=== PATIENT | male | born 1955 | race Caucasian/White ===

== ENCOUNTER → 2021-03-27 17:19 | Outpatient (BNVA) | payer MEDICARE, SELFPAY | PROVIDERS: PCP Nurse Practitioner Family; Visit Provider Nurse Practitioner Family | DX: E11.9 Type 2 diabetes mellitus without complications (principal); Z12.5 Encounter for screening for malignant neoplasm of prostate; R53.83 Other fatigue; S81.851A Open bite, right lower leg, initial encounter; W54.0XXA Bitten by dog, initial encounter; Z68.27 Body mass index [BMI] 27.0-27.9, adult; F17.210 Nicotine dependence, cigarettes, uncomplicated; Z71.89 Other specified counseling | CPT/HCPCS: 80053; 80061; 82306; 82607; 83036; 84443; 85025; 87070; 87075; 87205; G0103 ==

== ENCOUNTER 2021-04-10 13:18 | Outpatient (CLI) | payer MEDICARE, SELFPAY | END 2021-04-10 13:19 | disposition home or self-care (01) | LOC: WOUND 13:22 | PROVIDERS: PCP Nurse Practitioner Family; Visit Provider Nurse Practitioner Family | DX: E11.622 Type 2 diabetes mellitus with other skin ulcer (principal); L97.812 Non-pressure chronic ulcer of other part of right lower leg with fat layer exposed; F17.210 Nicotine dependence, cigarettes, uncomplicated | CPT/HCPCS: 11042; G0463 ==

== ENCOUNTER 2021-04-17 14:19 | Outpatient (CLI) | payer MEDICARE, SELFPAY | END 2021-04-17 14:20 | disposition home or self-care (01) | LOC: WOUND 14:20 | PROVIDERS: PCP Nurse Practitioner Family; Visit Provider Thoracic Surgery (Cardiothoracic Vascular Surgery) | DX: E11.622 Type 2 diabetes mellitus with other skin ulcer (principal); L97.822 Non-pressure chronic ulcer of other part of left lower leg with fat layer exposed; F17.210 Nicotine dependence, cigarettes, uncomplicated | CPT/HCPCS: 11042 ==

== ENCOUNTER 2021-04-24 14:41 | Outpatient (CLI) | payer MEDICARE, SELFPAY | END 2021-04-24 14:42 | disposition home or self-care (01) | LOC: WOUND 14:43 | PROVIDERS: PCP Nurse Practitioner Family; Visit Provider Thoracic Surgery (Cardiothoracic Vascular Surgery) | DX: Z09 Encounter for follow-up examination after completed treatment for conditions other than malignant neoplasm (principal); F17.210 Nicotine dependence, cigarettes, uncomplicated | CPT/HCPCS: 99212 ==

== ENCOUNTER → 2021-08-01 09:02 | Outpatient (BNVA) | payer MEDICARE, MEDICAID, SELFPAY | PROVIDERS: PCP Nurse Practitioner Family; Visit Provider Specialist | DX: I69.911 Memory deficit following unspecified cerebrovascular disease (principal); F41.8 Other specified anxiety disorders; Z91.19 Patient's noncompliance with other medical treatment and regimen; F17.210 Nicotine dependence, cigarettes, uncomplicated | CPT/HCPCS: 96116; 99204 ==

== ENCOUNTER → 2022-12-13 15:54 | Outpatient (BNVA) | payer MEDICARE, MEDICAID, SELFPAY | PROVIDERS: PCP Nurse Practitioner Family; Visit Provider Nurse Practitioner Family | DX: E11.65 Type 2 diabetes mellitus with hyperglycemia (principal); Z12.5 Encounter for screening for malignant neoplasm of prostate | CPT/HCPCS: 80053; 80061; 83036; 84443; 85025; G0103 ==

== ENCOUNTER → 2022-12-17 09:22 | Outpatient (BNVA) | payer MEDICARE, MEDICAID, SELFPAY | PROVIDERS: PCP Nurse Practitioner Family; Visit Provider Podiatrist Foot & Ankle Surgery | DX: I73.9 Peripheral vascular disease, unspecified (principal); B35.1 Tinea unguium; E11.65 Type 2 diabetes mellitus with hyperglycemia; G62.9 Polyneuropathy, unspecified; E11.42 Type 2 diabetes mellitus with diabetic polyneuropathy | CPT/HCPCS: 11721; 99203 ==

== ENCOUNTER 2022-12-26 10:17 | Outpatient (CLI) | payer MEDICARE, SELFPAY ==
--- NOTE | 2022-12-26 10:45 | CT_ITS ---
WS: [id number] LDCT LUNG CANCER SCREENING TECHNIQUE: Noncontrast CT of the chest with coronal and sagittal reformatted images. CLINICAL INFORMATION: F17.210 - Nicotine dependence, cigarettes, uncomplicated COMPARISON: None. DLP: 74.39 mGy.cm DIvol: Mean CTDIvol: 1.80 (mGy) All CT scans at [facility] use at least one of these dose optimization techniques: automat ed exposure control; mA and/or kV adjustment per patient size (includes targeted exams where dose is matched to clinical indication); or iterative reconstruction. FINDINGS:Noncalcified ovoid nodule LEFT lower lobe measuring 8.7 mm. Normal endobronchial tree. Nonca lcified nodule RIGHT lower lobe laterally measuring 4 mm. Aortic calcification. Normal caliber thoracic aorta. Coronary calcification. A few prominent paratrac heal lymph nodes nonspecific but likely reactive. Normal caliber descending thoracic aorta. No axilla ry lymphadenopathy. Adrenal glands are normal. Splenic artery calcification. Normal GE junction. CT/CT lung screening [id number] IMPRESSION: 8.7 mm noncalcified nodule LEFT lower lobe. Recommend short interva l follow-up in 3 months versus further evaluation with PET/CT. This is borderli ne in size for PET CT evaluation. LUNG-RADS: 4A-Probably Suspicious FOLLOW UP: 3 Month LDCT
== END 2022-12-26 10:18 | disposition home or self-care (01) ==
LOC: RAD 10:20
PROVIDERS: PCP Nurse Practitioner Family; Visit Provider Nurse Practitioner Family
DX: R91.1 Solitary pulmonary nodule (principal); F17.210 Nicotine dependence, cigarettes, uncomplicated
CPT/HCPCS: 71271

== ENCOUNTER 2023-08-04 16:54 | Inpatient (IN) | payer MEDICARE, MEDICAID, SELFPAY ==
[2023-08-04] VITALS (24 sets, daily range): BP systolic 133–176; BP diastolic 49–87; PULSE 86–110; RESP 12–29; TEMP 36.8; O2SAT 85–100; BMI 30.4
--- NOTE | 2023-08-04 17:00 | ECG_ITS ---
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 Measurements Intervals [place] Rate: 101 P: 62 OH: 175 QRS: 20 QRSD: 99 T: 134 QT: 328 QTc: 426 Interpretive Statements SINUS TACHYCARDIA POSSIBLE LEFT ATRIAL ENLARGEMENT [-0.1mV P-WAVE IN V1/V2] LEFT VENTRICULAR HYPERTROPHY AND ST-T CHANGE [VOLTAGE CRITERIA PLUS ST/T ABNORMALITY] POSSIBLE SEPTAL MYOCARDIAL INFARCTION , AGE INDETERMINATE Compared to ECG 08/22/2017 10:19:13 Left ventricular hypertrophy now present ST (T wave) deviation now present Sinus bradycardia no longer present Myocardial infarct finding still present Electronically Signed On 08-05-2023 8:18:22 GUEST LAUNDRY ATTENDANT by Orlin Smith M.D. [id number]
--- NOTE | 2023-08-04 17:10 | XRR_ITS ---
PROCEDURE INFORMATION: Exam: XR Chest Exam date and time: 08/04/2023 5:17 PM Age: 68 years old Clinical indication: Pain; Angina pectoris; Additional info: Cp TECHNIQUE: Imaging protocol: Radiologic exam of the chest. Views: 1 view. COMPARISON: CT lung screening [id number] 12/26/2022 10:42 AM FINDINGS: Lungs: Unremarkable. No consolidation. Pleural spaces: Unremarkable. No pleural effusion. No pneumothorax. Heart/Mediastinum: Unremarkable. No cardiomegaly. Bones/joints: Unremarkable. XR/XR chest 1V portable [id number] IMPRESSION: No acute findings.
--- NOTE | 2023-08-04 17:11 | ED_ITS ---
HPI - Chest Pain 2 General: Chief Complaint: Headache Stated Complaint: AMS; HYPERGLYCEMIA Source: patient and EMS Mode of arrival: EMS History of Present Illness: Patient was transported the emergency department EMS. He apparently triggered his medical alert bracelet because he did not feel well. He denied any specific chest pain shortness of breath or other constitutional symptoms. His daughter provides additional history and that she states that he had a IN with stent placement in 2018. She states he does no longer take Plavix a couple or other anticoagulants. He does take his statin. He still occasionally smokes cigarettes. She states that he had a rupture of an AVM in 2018 which occurred sometime after he had his STEMI and stent placement. Pertinent past history: coronary artery disease Onset: during rest Pain radiation: none Associated symptoms: Deny dyspnea, fever(s), nausea, palpitations, syncope or vomiting Treatment prior to arrival: aspirin (324 mg) and nitroglycerin Risk Factors: Coronary artery disease risk factors: smoking history and hyperlipidemia Review of Systems 2 Const: Reports: body aches and malaise; Denies: fever(s) or chills Eyes: Denies: change in vision ENMT: Denies: throat pain, odynophagia, nasal discharge or nasal congestion Card: Denies: palpitations, irregular heart rhythm, syncope or pre-syncope Resp: Denies: dyspnea, productive cough or non-productive cough GI: Denies: nausea, vomiting or diarrhea : Denies: flank pain, difficulty urinating or dysuria Musc: Denies: back pain, extremity pain or extremity swelling Skin/Breast: Denies: rash Neuro: Denies: headache(s) Psych: Reports: anxiety PFSH ED 2 PFSH: Medical History COPD (chronic obstructive pulmonary disease) Hypertension Dyslipidemia Memory deficit following unspecified cerebrovascular disease Nicotine dependence, unspecified, uncomplicated Diabetes Surgical History Hx of umbilical hernia repair (~2016) Hx of angioplasty Hx of colonoscopy (~2016) Hx of surgical amputation of finger (R) middle finger approx 35 yrs ago Hx of basal cell carcinoma excision (~2012) nose Family History Sister Diabetes Hypertension Mother Diabetes Father CAD (coronary artery disease) Cancer lung Brother , younger brother; in mid 40's Family history of premature coronary artery disease Social History Smoking and tobacco/nicotine status: current every day tobacco/nicotine user (2 packs a day) cigarettes Packs smoked per day: 2 Years cigarettes smoked: 56 Second hand smoke exposure: Yes Alcohol intake: never Substance/Drug Use: never Adopted: No Caregiver/support person: Yes (family) Lives independently: Yes Household members: none Marital status: service: No Current occupational status: disabled Current gender identity: Male Special lexa needs: No Agree to transfusion: Yes Physical Exam 2 Narrative: EXAM NARRATIVE: The patient's alert and cooperative. Const: COMMON NORMALS: no acute distress, average body habitus and alert N UTRITIONAL APPEARANCE: overweight ORIENTATION/CONSCIOUSNESS: Yes oriented to person and Yes oriented to place HENMT: COMMON NORMALS: normocephalic, Normal nasal mucous membranes and turbinates present and moist oral mucous membranes HEAD & SCALP: n ormocephalic NOSE: Normal nasal mucous membranes and turbinates present Eye: COMMON NORMALS: Equal, round and reactive pupils present and conjunctivae normal CONJUNCTIVA: Yes conjunctivae normal PUPIL: Yes Equal, round and reactive pupils present Neck/C-Spine: COMMON NORMALS: full ROM, no JVD and No carotid bruits Chest: COMMONS NORMALS: normal inspection of the chest Resp: COMMON NORMALS: normal respiratory effort, No use of accessory muscles and clear to auscultation bilaterally AUSCULTATION: clear to auscultation bilaterally Cardio: COMMON NORMALS: no JVD, regular rate, regular rhythm, No murmurs present (Cardio) and Peripheral pulses 2+ throughout RATE: regular rate R HYTHM: regular rhythm PERIPHERAL PULSES: Peripheral pulses 2+ throughout GI: COMMON NORMALS: Normal to inspection, nondistended, normoactive bowel sounds present, Soft to palpation and non-tender PALPATION: Yes Soft to palpation : COMMON NORMALS: Yes no CVA tenderness BLADDER/KIDNEY EXAM: Yes no CVA tenderness PENIS: normal penis Back/Pelvis: COMMON NORMALS: no CVA tenderness, thoracic and lumbar spine normal to inspection, no thoracic nor lumbar tenderness and thoraco-lumbar ROM normal Extremity: COMMON NORMALS: normal to inspection, capillary refill normal, no joint enlargement, no calf tenderness and no pedal edema Neuro: COMMON NORMALS: moves all extremities and no focal motor deficits S ENSORIUM/ORIENTATION: Yes alert, Yes oriented to person and Yes oriented to place Psych: COMMON NORMALS: mental status grossly normal Skin: COMMON NORMALS: turgor normal and no petechiae GENERAL SKIN EXAM: t urgor normal Course 2 Reevaluation(s): Reevaluation #1: Oil [place] Technician was activated at 1724 as well as cardiology was consulted. Time: 17:24 Reevaluation #2: Patient and family informed of our suspicion of acute IN and plan for intervention. They voiced understanding. Time: 17:42 Consultations: Consultation #1: Cardiology was consulted and EKG transmitted. Time: 17:24 Vital Signs: Vital signs: Vital Signs Pulse Rate 93 08/04/23 17:33 Respiratory Rate 25 H 08/04/23 17:33 Blood Pressure 133/72 08/04/23 17:33 Pulse Oximetry 93 08/04/23 17:33 Oxygen Delivery Me thod Room Air 08/04/23 17:33 MDM - Chest Pain Medical Decision Making Patient with history of coronary disease and having historically had an IN with stent placement in 2018 who presented via EMS after feeling unwell last night which continued throughout the day. No other specific complaints of chest pain fevers chills etc. the patient just felt malaise and unwell. EMS noted EKG changes in the field suggestive of possible ischemic condition and the patient was transported to the emergency department. No records available within the current system notes supported either an old EKG or prior history of angiogram despite the daughters history that he had been cared for at this facility. Initial evaluation of the patient revealed him to be awake and alert not complaining of chest pain. He had received aspirin and nitroglycerin in the field by EMS. Initial electrocardiogram here revealed ST segment elevation in V1 and V2 with some reciprocal changes noted in inferior limb leads II, III and aVF. EKG suggestive of an anterior septal occlusive IN. Cardiology and [place] Technician was notified. The patient and family were informed of presumptive diagnosis. Plan will be to have cardiology the patient to the [place] Technician for angiography and further intervention as indicated. Lab Data I reviewed the patient's lab results. 08/04/23 17:21 08/04/23 17:21 Radiology Impressions Chest X-Ray 08/04/23 17:10 IMPRESSION: No acute findings. Laboratory Results WBC 11.73 10^3/uL (3.29-11.43) H 08/04/23 17:21 RBC 5.78 10^6/uL (3.85-5.65) H 08/04/23 17:21 Hgb 17.40 g/dL (11.27-16.99) H 08/04/23 17:21 Hct 52.9 % (37-53) 08/04/23 17:21 MCV 91.5 fl (82-101) 08/04/23 17:21 MCH 30.1 pg (27-33) 08/04/23 17:21 MCHC 32.9 g/dL (30-55) 08/04/23 17:21 RDW 12.6 % (12.1-15.1) 08/04/23 17:21 Plt Count 213 10^3/cmm (157-399) 08/04/23 17:21 MPV 13.3 fL (7.4-10.4) H 08/04/23 17:21 Neut % (Auto) 89.5 % 08/04/23 17:21 Lymph % (Auto) 5.5 % 08/04/23 17:21 [place] % (Auto) 4.1 % 08/04/23 17:21 Eos % (Auto) 0.0 % 08/04/23 17:21 Baso % (Auto) 0.5 % 08/04/23 17:21 Neut # (Auto) 10.50 10^3/uL (1.8-7.7) H 08/04/23 17:21 Lymph # (Auto) 0.6 10^3/uL (0.8-4.8) L 08/04/23 17:21 [place] # (Auto) 0.5 10^3/uL (0.2-0.9) 08/04/23 17:21 Eos # (Auto) 0.0 10^3/uL (0.0-0.8) 08/04/23 17:21 Baso # (Auto) 0.1 10^3/uL (0.0-0.1) 08/04/23 17:21 Nucleated RBC % (auto) 0 % 08/04/23 17:21 Nucleated RBCs # 0.0 /100WBC 08/04/23 17:21 POC Glucose > 600 mg/dL (70-110) H* 08/04/23 17:06 XR interpretation done by ED provider, pending radiology final review ED provider radiology interpretation(s): Chest x-ray reveals borderline cardiomegaly but no essentially clear lung leos EKG Data EKG 1: I personally reviewed and interpreted this EKG as follows: Interpretation: Contemporaneous review of acute EKG reveals a ventricular rate of 101 bpm. He has normal DC interval, QRS duration, corrected QT interval. Normal axis. Borderline sinus tachycardia at [address] elevations in V1 and V2 well as some ST depressions noted in 2 3 and aVF. Suspicious for anterior septal myocardial infarction. No prior tracings available for comparison. Discharge Plan Discharge Patient Disposition: Admitted As Inpatient Clinical Impression: ST elevation (STEMI) myocardial infarction Condition: Stable Coding Level of Care Code ED Labor Relations Director for Irina Chan
[2023-08-04 17:22] LABS: Glucose Point of Care > 600 mg/dL (70-110)
--- NOTE | 2023-08-04 17:27 | XACV_ITS ---
Exam Room: 2 Ht: 175 cm Wt: 100 kg BSA: 2.24 m2 Gender: Male : 1955 Any Known Allergies: No known allergies Exam Priority: Routine Procedure(s): Procedure Description: Diagnostic procedure Procedure Description: PCI procedure Procedure Description: Left Heart Catheterization Procedure Description: Left ventriculography Procedure Description: Drug Eluting Coronary Stent Procedure Description: Coronary Angiography Diagnostic Cath Status: Emergency Diagnostic Findings * Left Main has no disease. * Left Anterior Descending has no disease. * Circumflex has no disease. * Distal Right Coronary Artery: obstructive 70% stenosis, DALILA: 3 flow. * Coronary angiography shows co-dominance. PCI Status: Emergency PCI Indication: STEMI - Stable (<= 12 hrs Sx) Interventional Findings * 90% distal right coronary artery. 80% mid obtuse marginal branch 60 to 70% mid left succumbs artery. LAD showed heavily calcified vessel with moderate 60% disease right after the takeoff of diagonal branch. There is aneurysmal dilatation proximally with mild to moderate disease. * Distal Right Coronary Artery: 70% stenosis treated with a MDT R VINCENZO 3.5X18 TORY. Conclusions 1. There is obstructive coronary artery disease with one vessel disease. 2. Moderate left ventricular systolic dysfunction. Ejection fraction of 35%. 3. Distal Right Coronary Artery was treated with a Drug Eluting Stent. Recommendations * Continue current medical management and risk factor modification. Post Op Diagnosis: Description: After reviewing the angiogram the LAD is patent with moderate diffuse disease right after the takeoff of diagonal branch no high-grade stenosis. Ostial diagonal branch has about 50% disease. Left circumflex artery has mid 60 to 70% disease at the bifurcation of good-sized obtuse marginal branch which has about 75 to 80% mid disease. The right coronary artery was a good-sized vessel and has 90% distal disease decision was made to proceed with a RCA intervention. 6 Kyrgyz JR4 guiding catheter was advanced ascending aorta and left main was engaged. [place] wire was utilized to cross the distal RCA without difficulty. 3.5 x 18 mm drug-eluting [place] stent was advanced to the stenotic lesion was deployed using 14 sal pressure with excellent results. There is distal 40 to 50% in the PDA which taper to be relatively small vessel distally. Patient tolerated procedure well without complications. Recommendation: 1. Continue aspirin and Brilinta for a year. Patient will require intervention to left circumflex artery and obtuse marginal branch at later stage 2. Management for ischemic cardiomyopathy with beta-christine REKHA inhibitor. Aldactone as tolerated at later stage. 3. Risk factor management modifications. Ventriculography Ejection Fraction: 35.0 % Left Ventriculography Findings: * Anterior apical and inferior apical hypokinesis with EF about 35%. Pressures Phase:Rest AO : 174 / 80 ( 110 ) @ 12:49:12 PM 132 / 94 ( 107 ) @ 12:49:12 PM 160 / 68 ( 102 ) @ 12:49:12 PM 129 / 56 ( 79 ) @ 12:49:12 PM LV : 118 / 15 / 11 @ 12:49:12 PM 156 / -7 / 6 @ 12:49:12 PM Valves Phase:DefaultPhase AV : 0.0 @ 6:49:12 PM AV Mean Gradient: 0.0 @ 6:49:12 PM 0.0 @ 6:49:12 PM Clinical Evaluation EBL: 5mL-10mL Procedural Details Pre-Procedure Time Out. Identified patient by full name and date of as verbalized by the patient/guarantor. Does the consent match the physician's order: N/A Emergent; Informed Consent not obtained due to time critical life threat. Accurate & Complete Informed Consent: N/A Emergent; Informed Consent not obtained due to time critical life threat. Inpatient/Outpatient History & Physical on Chart: N/A Emergent; Informed Consent not obtained due to time critical life threat. If H&P is completed, is and addenduem needed: N/A Emergent; Informed Consent not obtained due to time critical life threat; If yes, is the addendum complete: N/A Emergent; Informed Consent not obtained due to time critical life threat. Visualize and Verify Site with Patient/Guarantor: N/A. Relevant Radiology Images available: N/A Emergent. The risks, benefits, and alternatives of sedation and/or procedure were discussed by physician. The patient agrees to continue. Procedure started. [facility] Clinical Fraility Score: 4: Vulnerable. Admit Source: Emergency department. Clinical Manager Indications: ACS <= 24 hours. Chest Pain Symptom Assessment: Atypical Angina. Correct patient, site and procedure confirmed by cath team. Current diagnosis: STEMI. PERRLA. Strong, equal hand fixed route operator bilaterally. Lungs clear x 5 lobes. IV Site on Arrival: 20 gauge in the right hand. IV Site on Arrival: 18 gauge in the right anticubital. IV Site on Arrival: 18 gauge in the left anticubital. IV Fluids: 0.9% NaCl at KVO. 0 mL infused prior to laborer drying department. Oxygen started at 2liters/min via nasal canula. bilateral groins was prepped with chloroprep then draped in the usual sterile fashion. Physician notified. Baseline sample Acquired. HR: 97 BPM. Physician arrived. Physician scrubbed in. Immediate Pre-Procedure Time Out. Correct Patient: Yes; Correct Procedure: Yes; Correct Site: Yes; Correct Patient Position: Yes; Correct Supplies: Yes; Dried Flammable Prep: Yes; Blood Products Available: No;. Lidocaine 1% infiltrated to the right groin. Arterial access obtained with micropuncture set. A 5 luxembourger JR4 catheter in over wire. Multiple views taken of right coronary artery. Catheter removed over the standard wire. 6 luxembourger JL 4 guide catheter was inserted over the wire. Multiple views taken of left coronary artery. Physician review of cine films. Guide catheter out over standard wire. 6 luxembourger JR 4 guide catheter was inserted over the wire. [place] guidewire was advanced through the guide catheter to lesion in the distal RCA. Lab called critical potassium of 6.7 and Glucose of 1092. Guidewire advanced across lesion. Stent inserted to lesion in the distal RCA. Inflation Number : 1 A CRYS Schaeffer VINCENZO 3.5X18 TORY -Lot Number#[id number] EXP 11-18-2025 was prepped and advanced across the Dist RCA. The stent was deployed at 14 SAL for 0:10 seconds. Stent balloon out over wire. Results checked. Wire out. Guide catheter out. A 5 luxembourger Angled Pig catheter in over wire. EDP Sample taken: LV 118/15,11; HR: 101 BPM; SpO2: 96%. LV gram performed in [place] @ 10 mL/second for a total of 20 mL. Pullback taken: LV 156/-8,6; AO 160/68(102); Mean: 0mmHg, Peak to Peak: 0mmHg, SEP: 8sec/min; HR: 101 BPM; SpO2: 96%. ACT drawn. Results 294 seconds. Therapeutic limits - pre-heparin administration 90-150 seconds and monitoring heparin during a vascular procedure >250 seconds. A Right femoral angiogram was performed to determine safe placement of closure device. Physician scrubbed out. A Suture was successful obtaining hemostatsis at the Femoral artery insertion site. Sheath(s) sutured into position with 2-0 silk and sterile 4x4's and Op-site applied over the site. No oozing or signs and symptoms of hematoma noted. Arterial sheath flushed and connected to tranducer and pressure bag with heparinized saline. Post Procedure: Pulses reassessed and unchanged. PERRLA. Strong, equal hand fixed route operator bilaterally. No VTE prophylaxis required. PCI Indication: STEMI - Stable (<= 12 hrs from symptom onset). Medication's Wasted: Nitro = 49.8 mg. Medication's Wasted: Other = Fentanyl 75mcg. Total IV fluids: 50 mL. Post-op diagnosis: 80% Distal RCA stenosis, 80% OM stenosis. Complications: None. Estimated blood loss: 5mL-10mL. Responsiveness - Normal response to verbal stimuli; alert and oriented, PERRLA. Airway - Unaffected, no intervention required; spontaneous ventilation. Circulation: W/N/L, pulses unchanged. Nausea/Vomiting: No. Procedure completed. Patient transferred by bed to ICU. Vital chart was stopped. Brilinta 180mg PO ordered by Dr. Tavarez. Pt having difficulty swallowing water at this time. Medication sent to unit to be administered. Access Site Site: Femoral artery Sheath Size: 6 Fr Hemostasis Method: Suture Hemostasis Success: Successful Complication Findings: No complication. Procedure Medications Start: 6:02 PM Stop: 6:02 PM Medication: Versed Amount: 1 mg Route: I.V. Start: 6:02 PM Stop: 6:02 PM Medication: Fentanyl Amount: 25 mcg Route: I.V. Start: 6:13 PM Stop: 6:13 PM Medication: Versed Amount: 1 mg Route: I.V. Start: 6:17 PM Stop: 6:17 PM Medication: Heparin Amount: 5000 units Route: I.V. Start: 6:20 PM Stop: 6:20 PM Medication: Aggrastat 12.5 mg/250 mL Amount: 50 ml Route: I.V. bolus Start: 6:25 PM Stop: 6:25 PM Medication: Nitrogylcerin Amount: 200 mcg Route: I.C. I, the attending physician, have reviewed and verified all procedure medications. Yes, all medications given per verbal order Report Signatures Finalized by Lokesh Elder MD on 08/04/2023 07:05 PM
[2023-08-04 17:36] LABS: Basophils # 0.1 10^3/uL (0.0-0.1); Basophils % 0.5 %; Hematocrit 52.9 % (37-53); Lymphocytes # 0.6 10^3/uL (0.8-4.8); Lymphocytes % 5.5 %; Mean Corpuscular HGB Conc 32.9 g/dL (30-55); Mean Corpuscular Hemoglobin 30.1 pg (27-33); Mean Corpuscular Volume 91.5 fl (82-101); Mean Platelet Volume 13.3 fL (7.4-10.4); Monocytes # 0.5 10^3/uL (0.2-0.9); Monocytes % 4.1 %; Neutrophils % 89.5 %; Nucleated Red Blood Cells % 0 %; Platelet Count 213 10^3/cmm (157-399); Red Blood Count 5.78 10^6/uL (3.85-5.65); Red Cell Distribution Width 12.6 % (12.1-15.1); White Blood Count 11.73 10^3/uL (3.29-11.43)
--- NOTE | 2023-08-04 17:41 | PC.NURSE ---
placed pt on 2L NC, oxygen sat on room air was 88%, currently 97%
--- NOTE | 2023-08-04 17:52 | PC.NURSE ---
laboratory chemist arrival to ED 1748, report given to Alie. pt left ED at 1750
[2023-08-04 17:54] LABS: Troponin(5th) Baseline 42 ng/L (0-15)
[2023-08-04 18:03] LABS: Alanine Aminotransferase 27 U/L (0-41); Albumin Level 4.3 g/dL (3.5-5.2); Alkaline Phosphatase 247 U/L (40-130); Aspartate Amino Transferase 15 U/L (0-40); Blood Urea Nitrogen 38 mg/dL (8-23); Carbon Dioxide 20 mmol/L (22-29); Chloride 92 mmol/L (98-107); Globulin 4.1 g/dL (1.3-4.6); Glomerular Filtration Rate 50.1 mL/min (90-130); NT Pro B Type Natriuretic Pept 12940 pg/mL (0-125); Sodium 135 mmol/L (136-145); Total Bilirubin 0.4 mg/dL (0.15-1.2); Total Protein 8.4 g/dL (6.6-8.7)
[2023-08-04 18:13] LABS: Osmolality Calculated 344 mOsm/kg (285-295)
[2023-08-04 18:17] LABS: Anion Gap 29.7 (5-19)
[2023-08-04 18:19] LABS: Glucose 1092 mg/dL (65-115); Potassium 6.7 mmol/L (3.5-5.1)
--- NOTE | 2023-08-04 18:35 | P.CONIM_ITS ---
Providers/Reason For Consult 2 Consulting Physician/Specialty*: ER Reason for Consult*: STEMI Attending Physician: Lokesh Tavarez MD Primary Care Provider: MERY Medina History of Present Illness History of Present Illness Xander Chilel is a 68 year old male with no prior history of coronary artery disease. Who presented to the emergency room not feeling well today patient called his neighbor to call the ambulance. Patient was brought to the hospital EKG was performed that revealed possible anterior wall WA ST with ST elevation in V1 V2 V3. Patient had underlying incomplete left bundle branch block. Patient does not have specific complaint of chest pain. Patient had no prior medical care with any primary care physician. Denies any history of hypertension diabetes or hyper lipidemia. He has history of stroke. Review of Systems 2 Const: Reports: body aches and malaise; Denies: fever(s) or chills Eyes: Denies: change in vision ENMT: Denies: throat pain, odynophagia, nasal discharge or nasal congestion Card: Denies: palpitations, irregular heart rhythm, syncope or pre-syncope Resp: Denies: dyspnea, productive cough or non-productive cough GI: Denies: nausea, vomiting or diarrhea : Denies: flank pain, difficulty urinating or dysuria Musc: Denies: back pain, extremity pain or extremity swelling Skin/Breast: Denies: rash Neuro: Denies: headache(s) Psych: Reports: anxiety Medications/Allergies Home Medications Medication Instructions Recorded Confirmed Last Taken Type diabetic shoes with 3 inserts #1 ea 12/17/22 12/17/22 Unknown Rx atorvastatin 10 mg tablet See Rx Instructions .Route 03/28/23 Unknown Rx .COMPLEX #30 tabs dapagliflozin propanediol 10 mg See Rx Instructions .Route 03/28/23 Unknown Rx tablet (Farxiga) .COMPLEX #30 tabs Allergies Allergy/AdvReac Type Severity Reaction Status Date / Time No Known Allergies Allergy Verified 12/17/22 09:33 PFSH Acute 2 PFSH: Medical History COPD (chronic obstructive pulmonary disease) Hypertension Dyslipidemia Memory deficit following unspecified cerebrovascular disease Nicotine dependence, unspecified, uncomplicated Diabetes Surgical History Hx of umbilical hernia repair (~2016) Hx of angioplasty Hx of colonoscopy (~2017) Hx of surgical amputation of finger (R) middle finger approx 35 yrs ago Hx of basal cell carcinoma excision (~2012) nose Family History Sister Diabetes Hypertension Mother Diabetes Father CAD (coronary artery disease) Cancer lung Brother , younger brother; in mid 40's Family history of premature coronary artery disease Social History Smoking and tobacco/nicotine status: current every day tobacco/nicotine user (2 packs a day) cigarettes Packs smoked per day: 2 Years cigarettes smoked: 56 Second hand smoke exposure: Yes Alcohol intake: never Substance/Drug Use: never Adopted: No Caregiver/support person: Yes (family) Lives independently: Yes Household members: none Marital status: service: No Current occupational status: disabled Current gender identity: Male Special lexa needs: No Agree to transfusion: Yes Vitals/I&O/Wt Last Vital Signs Pulse 93 08/04/23 17:33 Resp 25 H 08/04/23 17:33 BP 139/49 08/04/23 17:55 Pulse Ox 93 08/04/23 17:33 O2 Del Method Room Air 08/04/23 17:33 Weight last 48 hrs Weight 220 lb Physical Exam 2 Const: COMMON NORMALS: no acute distress, no limitations, alert and well nourished HENMT: COMMON NORMALS: normocephalic, atraumatic, hearing grossly normal bilaterally and gingiva normal HEAD & SCALP: normocephalic and atraumatic Eye: COMMON NORMALS: Equal, round and reactive pupils present and EOMs intact bilaterally GENERAL EYE: appearance normal, both eyes and all related structures PUPIL: Yes Equal, round and reactive pupils present Neck/C-Spine: COMMON NORMALS: no JVD GENERAL: Yes normal visual inspection CAROTIDS: Yes normal carotid upstroke Chest: COMMONS NORMALS: normal inspection of the chest CHEST: Yes Symmetrical chest wall rise Resp: COMMON NORMALS: normal respiratory effort, No retractions, clear to auscultation bilaterally and percussion normal EFFORT & INSPECTION: Yes symmetric chest movement AUSCULTATION: clear to auscultation bilaterally P ERCUSSION: percussion normal Cardio: COMMON NORMALS: no JVD, regular rate, regular rhythm, S1 normal heart sound present, S2 normal heart sound present, No gallops present (Cardio), No clicks present (Cardio), No murmurs present (Cardio) and No rub (Cardio) R ATE: regular rate RHYTHM: regular rhythm HEART SOUNDS: S1 normal heart sound present and S2 normal heart sound present GI: COMMON NORMALS: Normal to inspection, nondistended, normoactive bowel sounds present, Soft to palpation and non-tender PALPATION: Yes Soft to palpation : COMMON NORMALS: Yes no CVA tenderness BLADDER/KIDNEY EXAM: Yes no CVA tenderness Back/Pelvis: COMMON NORMALS: no CVA tenderness Extremity: COMMON NORMALS: normal to inspection, full ROM, no joint enlargement, no clubbing, cyanosis or edema and no calf tenderness Neuro: COMMON NORMALS: moves all extremities SENSORIUM/ORIENTATION: Yes alert GAIT: Yes Normal gait present (Patient slightly slow to respon respond. Left sided weakness ) Psych: COMMON NORMALS: mental status grossly normal APPEARANCE: Yes grossly normal Skin: COMMON NORMALS: no rashes or lesions noted GENERAL SKIN EXAM: no rashes or lesions noted Data 08/04/23 17:21 08/04/23 17:21 A&P Assessment and plan (1) ST elevation (STEMI) myocardial infarction: EKG showing ST elevation anteriorly with underlying incomplete left bundle/LVH. We will proceed with emergent cardiac cath possible angioplasty. Patient is given aspirin labs pending Qualifiers: Involved coronary artery: unspecified coronary artery Qualified Code(s): I21.3 - ST elevation (STEMI) myocardial infarction of unspecified site (2) Nicotine dependence, unspecified, uncomplicated: Patient chronic smoker instructed to quit (3) Diabetes: Not on any medication. Patient has not been seen primary care physician for a while Qualifiers: Diabetes mellitus type: type 2 Diabetes mellitus tourist information assistant insulin use: without longterm use Diabetes mellitus complication status: with hyperglycemia Qualified Code(s): E11.65 - Type 2 diabetes mellitus with hyperglycemia (4) Hypertension: Adequately controlled Qualifiers: Hypertension type: essential hypertension Qualified Code(s): I10 - Essential (primary) hypertension Coding Level of Care Code Acute Code for [facility] Diagnoses ST elevation (STEMI) myocardial infarction I21.3 Involved coronary artery: unspecified coronary artery Nicotine dependence, unspecified, uncomplicated F17.200 Type 2 diabetes mellitus with hyperglycemia, without long-term current use of insulin E11.65 Diabetes mellitus type: type 2 Diabetes mellitus tourist information assistant insulin use: without tourist information assistant use Diabetes mellitus complication status: with hyperglycemia Essential hypertension I10 Hypertension type: essential hypertension
--- NOTE | 2023-08-04 19:26 | PM.HP ---
Providers/Chief Complaint Admitting Physician: Lokesh Tavarez MD Primary Care Provider: MERY Medina Chief Complaint: AMS; HYPERGLYCEMIA History of Present Illness Xander Chilel is a 68 year old male history of hemorrhagic stroke status post coiling 2017, active smoker, Noncompliant, diabetic, stopped taking insulin years ago, recently oral antihyperglycemic agents added recently by the PCP presented with chief complaint of lethargy fatigue. Patient was not feeling well he called his neighbors who checked on him and called 911. He was diagnosed with STEMI anterior wall, went to the [facility] status post intervention of RCA, left circumflex still needs intervention, patient is confused and lethargic, daughter at the bedside stating that patient is extremely noncompliant, smokes 3 packs of cigarettes every day, patient is able to follow commands, I requested kidney levels, he has metabolic acidosis with high sugar added insulin for hyperkalemia and hyperglycemia. Requested CT head because patient is having myoclonus of left arm as per the daughter from previous stroke he did have left-sided weakness but twitching is new. I have asked nurse to do CT head placed to give him dual antiplatelet therapy, place Bowling catheter Goals of care discussed with the daughter she is opting for DNR/DNI, stating that her father never wanted mechanical ventilation or intubation Review of Systems General: Reports: ROS unobtainable due to medical condition Medications/Allergies Home Medications Medication Instructions Recorded Confirmed Last Taken Type diabetic shoes with 3 inserts #1 ea 12/17/22 12/17/22 Unknown Rx atorvastatin 10 mg tablet See Rx Instructions .Route 03/28/23 Unknown Rx .COMPLEX #30 tabs dapagliflozin propanediol 10 mg See Rx Instructions .Route 03/28/23 Unknown Rx tablet (Farxiga) .COMPLEX #30 tabs Allergies Allergy/AdvReac Type Severity Reaction Status Date / Time No Known Allergies Allergy Verified 12/17/22 09:33 PFSH Acute PFSH: Medical History COPD (chronic obstructive pulmonary disease) Hypertension Dyslipidemia Memory deficit following unspecified cerebrovascular disease Nicotine dependence, unspecified, uncomplicated Diabetes Surgical History Hx of umbilical hernia repair (~2016) Hx of angioplasty Hx of colonoscopy (~2017) Hx of surgical amputation of finger (R) middle finger approx 35 yrs ago Hx of basal cell carcinoma excision (~2012) nose Family History Sister Diabetes Hypertension Mother Diabetes Father CAD (coronary artery disease) Cancer lung Brother , younger brother; in mid 40's Family history of premature coronary artery disease Social History Smoking and tobacco/nicotine status: current every day tobacco/nicotine user (2 packs a day) cigarettes Packs smoked per day: 2 Years cigarettes smoked: 56 Second hand smoke exposure: Yes Alcohol intake: never Substance/Drug Use: never Adopted: No Caregiver/support person: Yes (family) Lives independently: Yes Household members: none Marital status: service: No Current occupational status: disabled Current gender identity: Male Special lexa needs: No Agree to transfusion: Yes Vitals/I&O/Wt Last Vital Signs Pulse 93 08/04/23 17:33 Resp 25 H 08/04/23 17:33 BP 139/49 08/04/23 19:15 Pulse Ox 97 08/04/23 19:15 O2 Del Method Room Air 08/04/23 17:33 Weight last 48 hrs Weight 99.79 kg Physical Exam Narrative: Unkept. Appearance Lower extremity edema Venous dermatitis Feces on his feet S1, S2 with bigeminy Fatigue lethargic able to follow commands Left-sided myoclonus Pupils are symmetrical and reactive to light Patient able to follow simple commands Extremely dehydrated Currently on 3 L nasal cannula Abdomen soft Family is at the bedside Data 08/04/23 17:21 08/04/23 17:21 A&P Assessment and plan (1) ST elevation (STEMI) myocardial infarction: Qualifiers: Involved coronary artery: unspecified coronary artery Qualified Code(s): I21.3 - ST elevation (STEMI) myocardial infarction of unspecified site (2) Peripheral neuropathy: (3) PAD (peripheral artery disease): (4) Nicotine dependence, unspecified, uncomplicated: (5) Depression with anxiety: (6) Hypertension: Qualifiers: Hypertension type: essential hypertension Qualified Code(s): I10 - Essential (primary) hypertension (7) Memory deficit following unspecified cerebrovascular disease: (8) Diabetes: Qualifiers: Diabetes mellitus type: type 2 Diabetes mellitus long term acute care registered nurse insulin use: without senior living use Diabetes mellitus complication status: with hyperglycemia Qualified Code(s): E11.65 - Type 2 diabetes mellitus with hyperglycemia (9) Hyperglycemia: (10) Metabolic acidosis: (11) Hyperkalemia: (12) JAMES (acute kidney injury): Plan STEMI Status post Angioplasty There is obstructive coronary artery disease with one vessel disease. Moderate left ventricular systolic dysfunction. Ejection fraction of 35%. Distal Right Coronary Artery was treated with a Drug Eluting Stent. Start dual antiplatelet therapy, patient confused and lethargic we will place nasogastric tube and give him aspirin and Brilinta We will give him therapeutic dose of atorvastatin Hold lisinopril because of high creatinine Start metoprolol within 24 hours Requested echo Hyperglycemia with metabolic acidosis Check ketone levels Insulin drip BMP every 4 hours Start DKA protocol Patient has been noncompliant, check A1c level Bigeminy, arrhythmias after angioplasty, I will give him amiodarone 150 mg IV push within 10 minutes and then start amiodarone drip Hyperkalemia noted we will give him insulin and Kayexalate Check mag level, JAMES: Related to STEMI, Will give him IV fluid hydration for now Hold lisinopril Peripheral vascular disease continue aspirin and atorvastatin Venous stasis dermatitis Active smoker: Noncompliant N.p.o. DVT prophylaxis heparin Patient lives in an apartment, he will most likely need snf placement, daughter is in agreement DNR/DNI discussed with the daughter More than 2 midnights anticipated spoke with the daughter, regional sales manager, Requested PICC line Attestations Medical Necessity Statement*: More than 2 midnights anticipated for management of STEMI Coding Level of Care Code Critical Care >/= 30 minutes Critical care time (in minutes): 45 The high probability of a clinically significant, sudden or life threatening deterioration, as referenced in this documentation, required my full and direct attention, intervention and personal management. The critical care time shown is in addition to time spent performing any reported separately billable procedures and includes the following: [x] Data and vital sign review and interpretation [x] Patient assessment, examination and intervention [x] Medication orders and management [x] Patient/Family updates as able [x] Care Coordination and Documentation. Diagnoses ST elevation (STEMI) myocardial infarction I21.3 Involved coronary artery: unspecified coronary artery Peripheral neuropathy G62.9 PAD (peripheral artery disease) I73.9 Nicotine dependence, unspecified, uncomplicated F17.200 Depression with anxiety F41.8 Essential hypertension I10 Hypertension type: essential hypertension Memory deficit following unspecified cerebrovascular disease I69.911 Type 2 diabetes mellitus with hyperglycemia, without long-term current use of insulin E11.65 Diabetes mellitus type: type 2 Diabetes mellitus long term acute care registered nurse insulin use: without senior living use Diabetes mellitus complication status: with hyperglycemia Hyperglycemia R73.9 Metabolic acidosis E87.20 Hyperkalemia E87.5 JAMES (acute kidney injury) N17.9
--- NOTE | 2023-08-04 20:12 | ECG_ITS ---
[facility] Test Date: 2023-08-04 Pat Name: Xander Chilel Department: Room: ICU09 Gender: Male Legal Biller: : 1955 Requested By: Tyler Hernandez Order Number: [id number] Ted MD: Lucy Short M.D. Measurements Intervals [place] Rate: 94 P: 65 SC: 169 QRS: 15 QRSD: 106 T: 125 QT: 342 QTc: 428 Interpretive Statements SINUS RHYTHM WITH FREQUENT VENTRICULAR PREMATURE COMPLEXES IN A BIGEMINAL PATTERN LEFT VENTRICULAR HYPERTROPHY AND ST-T CHANGE [VOLTAGE CRITERIA PLUS ST/T ABNORMALITY] Compared to ECG 08/04/2023 17:00:38 Ventricular premature complex(es) now present Sinus tachycardia no longer present Myocardial infarct finding no longer present ST (T wave) deviation still present Electronically Signed On 08-04-2023 21:32:43 ORNAMENTAL PAINTER by Lucy Short M.D. [id number]
--- NOTE | 2023-08-04 20:16 | CTR_ITS ---
PROCEDURE INFORMATION: Exam: CT Head Without Contrast Exam date and time: 08/04/2023 9:40 PM Age: 68 years old Clinical indication: Stroke-like symptoms; Altered mental status/memory loss; Lt upper extremity and lt lower extremity weakness; Additional info: New onset of confusion and left side deficit after being anticoagulated for cardiac cath at approx. 1530 today. History of cereberal avm rupture. TECHNIQUE: Imaging protocol: Computed tomography of the head without contrast. Radiation optimization: All CT scans at this facility use at least one of these dose optimization techniques: automated exposure control; mA and/or kV adjustment per patient size (includes targeted exams where dose is matched to clinical indication); or iterative reconstruction. Other technique: STROKE PROTOCOL was implemented. REPORTING DATA: Count of CT and Cardiac NM exams in prior 12 months: This patient has received [address] and 0 known cardiac nuclear medicine studies in the 12 months prior to the current study. COMPARISON: CT head wo con* [id number] 08/22/2017 10:15 AM RADIATION DOSE METRICS: Total DLP (mGy-cm): 2444.51 FINDINGS: Limitations: The study is motion degraded. Brain: There are bilateral cerebral convexity subdural hematoma is present. The right-sided collection is hyperdense measuring 4 mm and is suspected to be acute. The left-sided collection measures 5 mm and is predominantly hypodense. No significant midline shift. Cerebral ventricles: There is layering blood in the left occipital horn. There is a partly calcified hyperdense mass projecting in the atria of the left lateral ventricle measuring 2.2 cm which may be a meningioma. No acute ischemic infarct. Moderate involutional changes of the brain. No significant ventriculomegaly. Paranasal sinuses: No significant inflammation. No fluid levels. Mastoid air cells: Visualized mastoid air cells are well aerated. Bones/joints: Unremarkable. No acute fracture. Soft tissues: Unremarkable. Other findings: There is retained intravascular contrast present from the procedure earlier the same day limiting the study. CT/CT head wo con* [id number] IMPRESSION: 1. Bilateral cerebral convexity subdural hematomas. The right appears acute the left appears subacute. No significant midline shift. 2. Layering blood in the left occipital horn. There is a hyperdense mass in the region of the left atria of the lateral ventricle which may be a meningioma. Follow-up MRI brain with and without contrast material is recommended for further characterization. ASSESSMENT: ASPECTS ([place] Stroke Program Early CT Score) is 10.
[2023-08-04 20:33] LABS: Ketone (Acetest) Serum Negative (Negative)
[2023-08-04 20:38] LABS: Troponin 5 2HR 41.82 ng/L (0-15); Troponin 5 2HR Delta -0.18 ABS# (0-10)
[2023-08-04] MEDS: amiodarone 150 MG/100 ML PREMIX 400 MG IV (20:55)
[2023-08-04] MEDS: insulin regular-human 15 UNIT in SYRINGE 1 EACH IVP (21:01)
[2023-08-04 21:03] LABS: Anion Gap 27.4 (5-19); Blood Urea Nitrogen 36 mg/dL (8-23); Calcium 10.6 mg/dL (8.5-10.5); Carbon Dioxide 18 mmol/L (22-29); Chloride 95 mmol/L (98-107); Glomerular Filtration Rate 59.9 mL/min (90-130); Potassium 5.4 mmol/L (3.5-5.1); Sodium 135 mmol/L (136-145)
[2023-08-04 21:06] LABS: Magnesium 2.8 mg/dL (1.7-2.3); Vitamin B12 750 pg/mL (232-1245)
[2023-08-04 21:10] LABS: Osmolality Calculated 334 mOsm/kg (285-295)
[2023-08-04 21:11] LABS: Glucose 927 mg/dL (65-115)
--- NOTE | 2023-08-04 21:25 | PC.NURSE ---
Glucose/Potassium Patient's potassium resulted at 5.4 and his glucose resulted critical at 927. Dr. De Luna notified; orders received to not administer kayexalate or lactulose but still administer other PO medications through NG tube. See MAR for details.
--- NOTE | 2023-08-04 21:32 | PC.NURSE ---
Addendum entered by Ilda Hernandez RN 08/04/23 21:57: When NG tube was placed, this nurse attempted to scan brilinta, but the dose available to give was AM dose AND AM dose was to be only 90 mg. This nurse placed verbal order for one time dose of 180 mg brilinta so it could be scanned. Original Note: This nurse took phone call report from CHARLEY Solomon in laboratory assistant. Juanito stated meds given in laboratory assistant and that he was about to give brilinta, 180 mg, and then be on the way to ICU . Once pt arrived in ICU, Juanito gave this nurse the 180 mg brilinta still in the package. Juanito stated that pt was unable to swallow well enough to take PO medicine at the time Juanito attempted to give it. Juanito stated due to sedation medicine given in laboratory assistant, pt would likely be able to wake up a bit more and take medicine. This nurse asked if medicine needed to be scanned. Juanito stated med was taken from laboratory assistant pyxis and already billed for . Dr. Tavarez came to see pt and update family. While talking with family, the daughter mentioned that pt had a previous avm rupture in August 2018 and should not be on any blood thinners because of this. stated that because of the stent placed, pt would need to be on blood thinners for at least 6 months. stated he would consult Dr. De Luna for hospitalist coverage. Dr. De Luna made aware of AVM history. Pt difficult stick to draw blood from as well as needing multiple incompatible medicines. ordered PICC line. This nurse voiced concern about pt's ability to swallow and low level of alertness. Dr. De Luna ordered NG tube placeent for PO medicines. CT scan was ordered at this time as well. Pt potassium level came back critical at 5.4, [facility] contacted by CHARLEY [place]. [facility] stated no need to give kayexolate or lactulose. See MAR for all meds.
--- NOTE | 2023-08-04 22:00 | XRR_ITS ---
PROCEDURE INFORMATION: Exam: XR Chest Exam date and time: 08/04/2023 11:50 PM Age: 68 years old Clinical indication: Device placement; Patient HX: Check S/P RT picc placement; Additional info: Ng tube placement TECHNIQUE: Imaging protocol: Radiologic exam of the chest. Views: 1 view. COMPARISON: CR (CHEST, ) 08/04/2023 5:17 PM FINDINGS: Tubes, catheters and devices: There is a feeding tube with its tip off the image likely in the patient's stomach. Right PICC catheter tip near superior cavoatrial junction. Lungs: Mild bilateral perihilar interstitial infiltrates. Pleural spaces: Unremarkable. No pleural effusion. No pneumothorax. Heart/Mediastinum: Stable heart size. Bones/joints: Unremarkable. XR/XR chest 1V portable [id number] IMPRESSION: 1. Mild bilateral perihilar infiltrates. Correlate for pulmonary vascular congestion versus pneumonia. 2. Feeding tube tip off image likely in the patient's stomach. This can be confirmed with abdominal x-ray for follow up. Central right PICC catheter placement.
[2023-08-04 22:14] LABS: Estmated Average Glucose 410; Hemoglobin A1C 15.9 % (4.0-6.0)
--- NOTE | 2023-08-04 22:39 | PC.NURSE ---
While waiting for telepharmacy to verify brilinta order and radiology to do chest xray to verify NG tube placement, Radiology report came back for CT scan. Dr. De Luna contacted by this nurse to relay results. As this nurse was reading results to [facility] on the phone, radiologist called [facility]. [facility] stated to hold brilinta and all blood thinners as pt had bleed in brain.
[2023-08-04 22:57] LABS: Glucose Point of Care > 600 mg/dL (70-110)
[2023-08-04 22:57] LABS: Glucose Point of Care > 600 mg/dL (70-110)
--- NOTE | 2023-08-04 23:10 | ECG_ITS ---
[facility] Test Date: 2023-08-04 Pat Name: Xander Chilel Department: Room: ICU09 Gender: Male Credit Or Loans Officer: : 1955 Requested By: Tyler Hernandez Order Number: [id number] Ted MD: Orlin Smith M.D. Measurements Intervals [place] Rate: 99 P: 65 WA: 169 QRS: 32 QRSD: 96 T: 129 QT: 333 QTc: 427 Interpretive Statements SINUS RHYTHM WITH FREQUENT VENTRICULAR PREMATURE COMPLEXES POSSIBLE LEFT ATRIAL ENLARGEMENT [-0.1mV P-WAVE IN V1/V2] LEFT VENTRICULAR HYPERTROPHY AND ST-T CHANGE [VOLTAGE CRITERIA PLUS ST/T ABNORMALITY] Compared to ECG 08/04/2023 20:12:22 Myocardial infarct finding now present ST (T wave) deviation still present Electronically Signed On 08-05-2023 8:19:31 OTHER SPATIAL SCIENTIST by Orlin Smith M.D. [id number]
--- NOTE | 2023-08-04 23:17 | PM.CCNAC ---
Critical Care Event Note The high probability of a clinically significant, sudden or life threatening deterioration of the patient's [] system(s) required my full and direct attention, intervention and personal management. The critical care time is as shown. This time is in addition to time spent performing any reported procedures but includes the following: [x] Data and vital sign review and interpretation [x] Patient assessment, examination and intervention [x] Documentation [x] Medication orders and management Critical Care Time Code activated: No Critical Care Time (min): 60 Additional information about critical care time: , for CT head concerning changes Extra 1 hour was spent in coordination of care, talking with [facility], try to arrange transfer to [facility], spoke with the family, Coding Level of Care Code Acute Code for Chg Fwd Time Spent (min) 60
[2023-08-04 23:26] LABS: Glucose 775 mg/dL (65-115)
[2023-08-04] MEDS: insulin regular-human 250 UNIT in sodium chloride 0.9% 250 ML 9.09 UNIT IV (23:35)
--- NOTE | 2023-08-04 23:44 | PC.NURSE ---
Consent obtained by 2 icu nurses for emergency consent. All risk and benefits discussed. risk included but not limited to dvt and infection. Rue scanned with US and basilic vein was the best option. Vein was straight, 4 mm, and free of visible clot. Pt draped in usual sterile fashion. Using real time US, lidocaine injected, vein accessed, and picc floated into position. Chest xray obtained and waiting confirmation. EBL less then 5 ml. No bleeding no hematoma.
[2023-08-04] MEDS: dexamethasone 10 mg/mL INJ 6 MG IVP (23:51)
[2023-08-05] VITALS (52 sets, daily range): BP systolic 109–166; BP diastolic 52–83; PULSE 49–106; RESP 0–47; TEMP 36.4–37.2; O2SAT 90–100; BMI 30.4
[2023-08-05 00:28] LABS: Glucose Point of Care > 600 mg/dL (70-110)
[2023-08-05 00:46] LABS: Partial Thromboplastin Time 27.1 SECONDS (23.9-36.7)
[2023-08-05 01:19] LABS: Blood Urea Nitrogen 43 mg/dL (8-23); Calcium 10.3 mg/dL (8.5-10.5); Carbon Dioxide 20 mmol/L (22-29); Chloride 107 mmol/L (98-107); Glomerular Filtration Rate 59.9 mL/min (90-130); Osmolality Calculated 337 mOsm/kg (285-295); Sodium 141 mmol/L (136-145)
[2023-08-05 01:23] LABS: Glucose 706 mg/dL (65-115)
--- NOTE | 2023-08-05 01:55 | PC.NURSE ---
Blood Glucose Patient's glucose resulted critical at 706. Per insulin drip protocol, the insulin drip was to be increased by 9 units/hr to 18 units/hr and a 0.05 unit/kg bolus of insulin IVP was to be administered. Dr. De Luna notified of critical result and of insulin drip changes/bolus; changes and bolus approved by Dr. De Luna. See MAR for details.
[2023-08-05] MEDS: insulin regular-human 100 units/1 mL 4.5 UNIT IV (02:15)
[2023-08-05 04:22] LABS: Glucose Point of Care 282 mg/dL (70-110)
[2023-08-05 04:22] LABS: Glucose Point of Care 425 mg/dL (70-110)
[2023-08-05 04:45] LABS: Basophils # 0.1 10^3/uL (0.0-0.1); Basophils % 0.3 %; Hematocrit 50.3 % (37-53); Lymphocytes # 0.9 10^3/uL (0.8-4.8); Lymphocytes % 5.1 %; Mean Corpuscular HGB Conc 33.2 g/dL (30-55); Mean Corpuscular Volume 90.3 fl (82-101); Monocytes # 1.2 10^3/uL (0.2-0.9); Monocytes % 6.7 %; Neutrophils # 15.69 10^3/uL (1.8-7.7); Neutrophils % 87.5 %; Nucleated Red Blood Cells % 0 %; Platelet Count 219 10^3/cmm (157-399); Red Blood Count 5.57 10^6/uL (3.85-5.65); Red Cell Distribution Width 12.4 % (12.1-15.1); White Blood Count 17.95 10^3/uL (3.29-11.43)
[2023-08-05] MEDS: sodium chloride 0.9% 1,000 ML 100 ML IV (04:54)
[2023-08-05 05:13] LABS: C Reactive Protein 15.7 mg/L (0.0-4.9)
[2023-08-05] MEDS: acetaminophen 1,000 MG/100 ML PIGGYBACK 400 MG IV (05:17)
[2023-08-05 05:23] LABS: Glucose Point of Care 263 mg/dL (70-110)
[2023-08-05 05:24] LABS: Anion Gap 19.5 (5-19); Blood Urea Nitrogen 43 mg/dL (8-23); Calcium 10.6 mg/dL (8.5-10.5); Carbon Dioxide 23 mmol/L (22-29); Chloride 112 mmol/L (98-107); Glomerular Filtration Rate 42.9 mL/min (90-130); Glucose 305 mg/dL (65-115); Osmolality Calculated 334 mOsm/kg (285-295); Potassium 3.5 mmol/L (3.5-5.1); Sodium 151 mmol/L (136-145)
[2023-08-05 05:30] LABS: Magnesium 2.6 mg/dL (1.7-2.3); Phosphorus 1.6 mg/dL (2.5-4.5)
[2023-08-05 06:15] LABS: Glucose Point of Care 343 mg/dL (70-110)
[2023-08-05] MEDS: morphine 4 mg/mL SDV 1 mL 2 MG IVP (06:39)
[2023-08-05 07:33] LABS: Glucose Point of Care 242 mg/dL (70-110)
--- NOTE | 2023-08-05 07:56 | PC.NURSE ---
Assessment: Pt able to tell his name and the month of his , He stated he did not know and did not care when asked if he knew where he was. Leg stabilizer on right reoved as 6 hours post sheath removal completed.
[2023-08-05 08:19] LABS: Glucose Point of Care 122 mg/dL (70-110)
[2023-08-05] MEDS: perflutren protein-a microsphr 0.22 mg/mL SDV 3 mL IV (08:28)
[2023-08-05] MEDS: pantoprazole 40 mg SDV IVP ×2 (09:21→17:31)
[2023-08-05] MEDS: D5-NS 0.45% + KCL 20 mEq 20 MEQ/1,000 ML BAG 100 MEQ IV (09:22)
[2023-08-05] MEDS: potassium chloride premix 100 ML 50 MEQ IV (09:22)
--- NOTE | 2023-08-05 09:28 | P.PN_ITS ---
Subjective 2 Subjective: Patient had subdural hematoma and antiplatelet therapy was held. Patient is lethargic. Wakes up. Denies chest pain. Vitals/I&O/Wt Last Vital Signs Temp 98.4 F 08/05/23 07:45 Pulse 76 08/05/23 07:45 Resp 14 08/05/23 07:45 BP 140/61 08/05/23 07:45 Pulse Ox 95 08/05/23 07:45 O2 Del Method Room Air 08/05/23 07:45 O2 Flow Rate 3 08/05/23 04:26 08/04/23 08/05/23 08/05/23 22:59 06:59 14:59 Intake Total 100.15 / 100.15 477.042 / 577.192 13.031 / 13.031 Output Total 1900 / 1900 Balance 100.15 / 100.15 -1422.958 / -1322.808 13.031 / 13.031 Weight last 48 hrs Weight 200 lb Weight 200 lb Weight 220 lb Physical Exam 2 Narrative: GENERAL: Patient is lethargic NECK: No jugular vein distension. [] HEENT: No cyanosis. No icterus. No pallor. [] HEART: Regular S1 and S2. LUNGS: Clear to auscultate bilaterally. [] EXTREMITIES: Lower extremities with 1+ edema bilaterally. Urinary Catheter Management: Bowling: Cath Placed During This Visit: yes Reason for Continuing Indwelling Catheter: Accurate Measurement of Urinary Output in Critically Ill Patients Urinary Catheter Date of Insertion: 08/04/23 Urinary Catheter Time of Insertion: 20:50 Data 08/05/23 04:20 08/05/23 14:52 A&P Assessment and plan (1) ST elevation (STEMI) myocardial infarction: Borderline findings on EKG. S/p PCI of RCA yesterday with 1 stent. Later found to have a subdural hematoma. Antiplatelet and anticoagulation therapy was stopped. Per procedure performing family resource specialist and hospitalist, family updated and on board. Code status was changed to DNR/DNI. High risk of stent thrombosis given no antiplatelet therapy (with acute head bleed). Family declined transfer to center with neurosurgery availability. Awaiting swallow screen. Can put on statin therapy. On amiodarone. Can stop that as likely reason for starting was PVCs. If can take oral meds, can consider low dose beta christine. Qualifiers: Involved coronary artery: unspecified coronary artery Qualified Code(s): I21.3 - ST elevation (STEMI) myocardial infarction of unspecified site (2) Nicotine dependence, unspecified, uncomplicated: Patient chronic smoker instructed to quit (3) Diabetes: Per medicine team Qualifiers: Diabetes mellitus type: type 2 Diabetes mellitus intermediate card tender insulin use: without care home use Diabetes mellitus complication status: with hyperglycemia Qualified Code(s): E11.65 - Type 2 diabetes mellitus with hyperglycemia (4) Hypertension: Per medicine team Qualifiers: Hypertension type: essential hypertension Qualified Code(s): I10 - Essential (primary) hypertension Attestations 2 Medical Necessity Statement*: Care expected to cross 2midnights. Coding Level of Care Code Acute Code for [facility] Diagnoses ST elevation (STEMI) myocardial infarction I21.3 Involved coronary artery: unspecified coronary artery Nicotine dependence, unspecified, uncomplicated F17.200 Type 2 diabetes mellitus with hyperglycemia, without long-term current use of insulin E11.65 Diabetes mellitus type: type 2 Diabetes mellitus care home insulin use: without intermediate card tender use Diabetes mellitus complication status: with hyperglycemia Essential hypertension I10 Hypertension type: essential hypertension
--- NOTE | 2023-08-05 10:13 | PC.NURSE ---
Insulin gtt; Per protocol, last 2 blood sugars, would require gtt to decrease 4 units/hour. Insulin gtt remains infusing at 1unit/hour. Unable to decrease by 4 , both times.
[2023-08-05 10:14] LABS: Glucose Point of Care 192 mg/dL (70-110)
[2023-08-05] MEDS: carvedilol 3.125 mg Tablet PO ×2 (10:38→17:31)
--- NOTE | 2023-08-05 10:50 | PC.NURSE ---
Pt passed bedsdie swallow test. Dr Landa notified. Oral medications now administered.
[2023-08-05 11:17] LABS: Glucose Point of Care 234 mg/dL (70-110)
[2023-08-05 12:29] LABS: Glucose Point of Care 186 mg/dL (70-110)
[2023-08-05 12:30] LABS: Glucose Point of Care 282 mg/dL (70-110)
[2023-08-05 12:30] LABS: Glucose Point of Care 596 mg/dL (70-110)
--- NOTE | 2023-08-05 15:03 | P.PN_ITS ---
Subjective 2 Subjective: Wakes up to voice, shoulder touch. Denies pain or discomfort. Redirects when asked about what his present location is. Does not tell me the year. When asked if he knows reason for his hospitalization states that he does not care. Vitals/I&O/Wt Last Vital Signs Temp 98.4 F 08/05/23 07:45 Pulse 91 08/05/23 14:00 Resp 21 H 08/05/23 13:45 BP 126/55 08/05/23 13:45 Pulse Ox 100 08/05/23 13:45 O2 Del Method Nasal Cannula 08/05/23 13:45 O2 Flow Rate 2 08/05/23 13:45 08/05/23 08/05/23 08/05/23 06:59 14:59 22:59 Intake Total 477.042 / 577.671 395.5896 / 975.6523 Output Total 1900 / 1900 Balance -1422.958 / -1322.761 305.3572 / 975.6523 Weight last 48 hrs Weight 90.718 kg Weight 90.718 kg Weight 99.79 kg Physical Exam 2 Const: GENERAL APPEARANCE: cooperative, disheveled and lethargic O RIENTATION/CONSCIOUSNESS: Yes lethargic HENMT: COMMON NORMALS: oropharynx normal Neck/C-Spine: COMMON NORMALS: no JVD Resp: COMMON NORMALS: normal respiratory effort and clear to auscultation bilaterally AUSCULTATION: clear to auscultation bilaterally Cardio: COMMON NORMALS: no JVD, regular rhythm, S1 normal heart sound present, S2 normal heart sound present and No murmurs present (Cardio) RHYTHM: regular rhythm HEART SOUNDS: S1 normal heart sound present and S2 normal heart sound present GI: COMMON NORMALS: Normal to inspection, nondistended, normoactive bowel sounds present, Soft to palpation and non-tender PALPATION: Yes Soft to palpation Extremity: COMMON NORMALS: no joint enlargement and no pedal edema Neuro: COMMON NORMALS: moves all extremities SENSORIUM/ORIENTATION: Yes lethargic Skin: OTHER: Chronic venous stasis changes Dry scaly skin Urinary Catheter Management: Bowling: Cath Placed During This Visit: yes Reason for Continuing Indwelling Catheter: Accurate Measurement of Urinary Output in Critically Ill Patients Urinary Catheter Date of Insertion: 08/04/23 Urinary Catheter Time of Insertion: 20:50 Data 08/05/23 04:20 08/05/23 04:20 A&P Assessment and plan (1) ST elevation (STEMI) myocardial infarction: Qualifiers: Involved coronary artery: unspecified coronary artery Qualified Code(s): I21.3 - ST elevation (STEMI) myocardial infarction of unspecified site (2) Peripheral neuropathy: (3) PAD (peripheral artery disease): (4) Nicotine dependence, unspecified, uncomplicated: (5) Depression with anxiety: (6) Hypertension: Qualifiers: Hypertension type: essential hypertension Qualified Code(s): I10 - Essential (primary) hypertension (7) Memory deficit following unspecified cerebrovascular disease: (8) Diabetes: Qualifiers: Diabetes mellitus complication status: with hyperglycemia Diabetes mellitus mcc insulin use: without mcc use Diabetes mellitus type: t ype 2 Qualified Code(s): E11.65 - Type 2 diabetes mellitus with hyperglycemia (9) Hyperglycemia: (10) Metabolic acidosis: (11) Hyperkalemia: (12) JAMES (acute kidney injury): Plan Subdural hematoma: Reviewed overnight documentation by hospitalist, cardiology and nursing. After discussion for need for antiplatelets with stent placement due to STEMI these were not continued due to finding of subdural hematoma on CT head. Care continued here upon family consideration after discussion of outside transfer for neurosurgical evaluation and management. At current time with expectant management, antiplatelets have not been resumed. He is lethargic, but awakens, answers some questions. Questionable understanding of his condition as he redirects any questions he either does not want to answer or does not know the answer to. Continue reassessment, reorient, supportive measures. PPI prophylaxis. SCD VTE prophylaxis. Reportedly passed bedside swallow, but is still lethargic. Pending ST assessment. STEMI TTE reviewed, noted 20% ejection fraction. Global left ventricular hypokinesis. Reviewed CODE STATUS adjustment, allow natural . Currently not a candidate for antiplatelet medication. He pulled out the NG tube. Passed bedside swallow evaluation. Resumed on beta-christine. We will give him therapeutic dose of atorvastatin Hold lisinopril because of high creatinine Hyperglycemia with metabolic acidosis On insulin drip for DKA. Reviewed electrolytes, noted potassium, phosphate deficit. Replace. Reviewed magnesium has been okay. Recheck chemistry, magnesium, Phos. A1c reviewed, noted 15.9. Bigeminy, arrhythmias after angioplasty: Continues on amiodarone drip. Continue at this time until establishes reliable oral intake. Hyperkalemia look-alike did not receive Kayexalate. Noted DKA. Subsequently requiring potassium replacement. Check mag level, reviewed, noted okay JAMES: Related to STEMI, recheck chemistry. Bowling in place. Monitor ALPHONSO. Will check kidney ultrasound. Receiving IV fluid challenge. Hold lisinopril Peripheral vascular disease continue atorvastatin Venous stasis dermatitis Active smoker: Nicotine replacement as needed. Patient lives in an apartment, he will most likely need senior living placement, daughter is in agreement DNR/DNI discussed with the daughter Dementia: Reviewed neurology note. Severe anterograde dementia, unable to manage his own affairs, longstanding lack of adherence with medical treatments, unsafe to live at home. Case management consultation to assist with post discharge planning as well. Reviewed chest x-ray, PICC line has been placed. Attestations 2 Medical Necessity Statement*: Continue admission for assessment management due to DKA, subdural hematoma, STEMI, status post tenting, JAMES additional medical problems. Coding Level of Care Code Critical Care >/= 30 minutes Critical care time (in minutes): 40 The high probability of a clinically significant, sudden or life threatening deterioration, as referenced in this documentation, required my full and direct attention, intervention and personal management. The critical care time shown is in addition to time spent performing any reported separately billable procedures and includes the following: [x] Data and vital sign review and interpretation [x ] Patient assessment, examination and intervention [x] Medication orders and management [x] Patient/Family updates as able [x] Care Coordination and Documentation. Diagnoses ST elevation (STEMI) myocardial infarction I21.3 Involved coronary artery: unspecified coronary artery Peripheral neuropathy G62.9 PAD (peripheral artery disease) I73.9 Nicotine dependence, unspecified, uncomplicated F17.200 Depression with anxiety F41.8 Essential hypertension I10 Hypertension type: essential hypertension Memory deficit following unspecified cerebrovascular disease I69.911 Type 2 diabetes mellitus with hyperglycemia, without long-term current use of insulin E11.65 Diabetes mellitus complication status: with hyperglycemia Diabetes mellitus extermination inspector insulin use: without extermination inspector use Diabetes mellitus type: type 2 Hyperglycemia R73.9 Metabolic acidosis E87.20 Hyperkalemia E87.5 JAMES (acute kidney injury) N17.9
--- NOTE | 2023-08-05 15:29 | US_ITS ---
WS: [id number] RENAL ULTRASOUND HISTORY: JAMES COMPARISON: None available. TECHNIQUE: 2-D and color Doppler imaging of the kidney submitted. Right kidney: 10.3 cm x 5.0 cm x 5.6 cm. Cortex: 1.3 cm Normal size kidney. Cortical cyst mid kidney 1.0 x 1.1 cm. No solid mass. Left kidney: 11.6 cm x 4.2 cm x 5.6 cm. Cortex: 1.4 cm Normal size kidney. Cortical cyst superior kidney 1.7 x 1.6 cm. Aorta: Poorly visualized. Urinary Bladder: Nondistended. IMPRESSION: 1. Normal size kidneys and no hydronephrosis. 2. Bilateral simple renal cysts.
[2023-08-05 15:31] LABS: Blood Urea Nitrogen 41 mg/dL (8-23); Calcium 9.3 mg/dL (8.5-10.5); Carbon Dioxide 21 mmol/L (22-29); Chloride 112 mmol/L (98-107); Glomerular Filtration Rate 59.9 mL/min (90-130); Glucose 288 mg/dL (65-115); Magnesium 2.3 mg/dL (1.7-2.3); Osmolality Calculated 317 mOsm/kg (285-295); Phosphorus 3.4 mg/dL (2.5-4.5); Sodium 143 mmol/L (136-145)
[2023-08-05 15:34] LABS: Anion Gap 14.5 (5-19); Potassium 4.5 mmol/L (3.5-5.1)
[2023-08-05 16:26] LABS: Glucose Point of Care 358 mg/dL (70-110)
[2023-08-05 16:26] LABS: Glucose Point of Care 343 mg/dL (70-110)
[2023-08-05 16:26] LABS: Glucose Point of Care 248 mg/dL (70-110)
[2023-08-05 16:26] LABS: Glucose Point of Care 318 mg/dL (70-110)
[2023-08-05] MEDS: insulin glargine 100 units/1 mL 10 UNIT SUBCUT (16:37)
[2023-08-05] MEDS: insulin lispro 100 unit/1 mL SUBCUT ×2 (17:31→21:28)
[2023-08-05] MEDS: amiodarone 200 mg Tablet 400 MG PO (17:31)
--- NOTE | 2023-08-05 18:43 | PC.NURSE ---
Shift summary: Pt rested in bed for most of the shift. At end of shift he was able to stand at bedside for a few minutes. His balance is off, he leaned backwards somewhat but did not stumble. He remained in sinus rhythm throughout shift. NO complaints of dizziness, chest pain or shortness of breath. Amio gtt stopped this evening, pt switched to PO. Insulin gtt stopped this evening, he was started on Lantus and a sliding scale. 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 Aspiration precautions started. He was able to consume a bit of a clear liquid diet this evening. He remains on d5/0.45NS with 20 KCL, rated reduced to 75ml/hr this evening. His daughter and his brother, has been in to see him today. HIs brother is is DPOA. He has been weepy about his . Per the daughter they have been for several years now. She stated this regression has just recently started. Bowling catheter output of 500ml noted this shift.
--- NOTE | 2023-08-05 19:28 | USCV_ITS ---
Xander Chilel Age: 68 Gender: M : 1955 Exam Date: 08/05/2023 07:57 Ordering Phys: Jeff De Luna MD Technologist: Efrain Jefferson Exam Location: [facility] [place] Indication: OH BP: 152 / 52 HR: 75 Rhythm: Sinus Technical Quality: Technically difficult study MEASUREMENTS (Male / Female) Normal Values 2D ECHO LV Diastolic Diameter PLAX 4.7 cm 4.2 - 5.9 / 3.9 - 5.3 cm LV Systolic Diameter PLAX 3.7 cm IVS Diastolic Thickness 1.0 cm 0.6 - 1.0 / 0.6 - 0.9 cm IVS Systolic Thickness 1.5 cm LVPW Diastolic Thickness 1.2 cm 0.6 - 1.0 / 0.6 - 0.9 cm LVPW Systolic Thickness 1.3 cm LVOT Diameter 2.1 cm LV Ejection Fraction 2D Teich 32.8 % LV Ejection Fraction MOD 2C 23.4 % LV Ejection Fraction 2C AL 20.3 % LA Diameter 4.1 cm M-MODE Aortic Annulus Diameter 3.7 cm LA Ao Ratio MM 1.3 DOPPLER AV Peak Velocity 151.0 cm/s LVOT Peak Velocity 86.0 cm/s AV Area Cont Eq vti 1.9 cm squared AV Area Cont Eq pk 1.9 cm squared MV Area PHT 5.0 cm squared Mitral E to A Ratio 1.4 MV E' Velocity 117.0 cm/s Mitral E to LV E' Septal Ratio 31.6 TR Peak Velocity 296.3 cm/s TR Peak Gradient 35.1 mmHg TV Peak E Velocity 66.0 cm/s Right Atrial Pressure 3.0 mmHg Pulmonary Artery Systolic Pressu 38.1 mmHg RV Acceleration Time 0.2 s FINDINGS Left Ventricle Dilated left ventricle with severely decreased left ventricular systolic function. Left ankle ejection fraction estimated at 20%. Severe global hypokinesis with akinesis of mid to apical septal, apical anterior, apical inferior, mid to apical lateral and apical vega. Right Ventricle Right ventricle not well visualized. Right Atrium Right atrium not well visualized. Left Atrium Left atrium not well visualized. Mitral Valve Mildly thickened mitral valve. Aortic Valve Aortic valve not well visualized. No aortic valve stenosis. Tricuspid Valve Tricuspid valve not well visualized. Pulmonic Valve Pulmonic valve not well visualized. Pericardium No pericardial effusion. Aorta Aorta not well visualized. IVC Inferior vena cava not visualized. CONCLUSIONS 1. This is a technically very difficult study. Optison was used per protocol. 2. Dilated left ventricle with severely decreased left ventricular systolic function. Left ankle ejection fraction estimated at 20%. Severe global hypokinesis with akinesis of mid to apical septal, apical anterior, apical inferior, mid to apical lateral and apical vega. 3. No evidence of LV apical thrombus. 4. No prior similar studies to compare. Lucy Short MD (Electronically Signed) Final Date: 05 August 2023 12:40 S
[2023-08-05 19:38] LABS: Glucose Point of Care 94 mg/dL (70-110)
[2023-08-05] MEDS: atorvastatin 40 mg Tablet 80 MG PO (20:31)
[2023-08-05] MEDS: D5-NS 0.45% + KCL 20 mEq 20 MEQ/1,000 ML BAG 75 MEQ IV (20:32)
[2023-08-05] MEDS: levETIRAcetam 500 MG/100 ML PREMIX 400 MG IV (21:31)
[2023-08-05 23:43] LABS: Glucose Point of Care 175 mg/dL (70-110)
[2023-08-06] VITALS (20 sets, daily range): BP systolic 110–152; BP diastolic 50–92; PULSE 48–63; RESP 6–21; TEMP 36.4–36.7; O2SAT 86–100
[2023-08-06] MEDS: insulin lispro 100 unit/1 mL SUBCUT ×3 (04:01→21:04)
[2023-08-06 04:02] LABS: Glucose Point of Care 205 mg/dL (70-110)
[2023-08-06 07:03] LABS: Basophils # 0.1 10^3/uL (0.0-0.1); Basophils % 0.4 %; Eosinophils # 0.1 10^3/uL (0.0-0.8); Eosinophils % 0.6 %; Hematocrit 43.8 % (37-53); Lymphocytes # 2.5 10^3/uL (0.8-4.8); Lymphocytes % 16.6 %; Mean Corpuscular HGB Conc 32.2 g/dL (30-55); Mean Corpuscular Hemoglobin 30.7 pg (27-33); Mean Corpuscular Volume 95.2 fl (82-101); Mean Platelet Volume 13.6 fL (7.4-10.4); Monocytes # 1.1 10^3/uL (0.2-0.9); Monocytes % 7.2 %; Neutrophils # 11.39 10^3/uL (1.8-7.7); Neutrophils % 74.8 %; Nucleated Red Blood Cells % 0 %; Platelet Count 121 10^3/cmm (157-399); White Blood Count 15.23 10^3/uL (3.29-11.43)
[2023-08-06 07:29] LABS: Alanine Aminotransferase 12 U/L (0-41); Albumin Level 2.8 g/dL (3.5-5.2); Alkaline Phosphatase 73 U/L (40-130); Blood Urea Nitrogen 36 mg/dL (8-23); Calcium 8.8 mg/dL (8.5-10.5); Carbon Dioxide 22 mmol/L (22-29); Chloride 111 mmol/L (98-107); Creatinine Clr Calc Pharmacy 61.7675; Globulin 3.3 g/dL (1.3-4.6); Glomerular Filtration Rate 59.9 mL/min (90-130); Glucose 262 mg/dL (65-115); Osmolality Calculated 311 mOsm/kg (285-295); Sodium 142 mmol/L (136-145); Total Bilirubin 0.4 mg/dL (0.15-1.2); Total Protein 6.1 g/dL (6.6-8.7)
--- NOTE | 2023-08-06 07:41 | P.PN_ITS ---
Subjective 2 Subjective: Patient is drowsy. No chest pain. Vitals/I&O/Wt Last Vital Signs Temp 97.5 F L 08/06/23 04:24 Pulse 52 L 08/06/23 06:00 Resp 6 L 08/06/23 06:00 BP 139/59 08/06/23 06:00 Pulse Ox 98 08/06/23 06:00 O2 Del Method Room Air 08/06/23 06:00 O2 Flow Rate 2 08/05/23 19:55 08/05/23 08/06/23 08/06/23 22:59 06:59 14:59 Intake Total 1727.943 / 2703.5953 Output Total 500 / 500 425 / 925 Balance 1227.943 / 2203.5953 -425 / 1778.5953 Weight last 48 hrs Weight 194 lb Weight 200 lb Weight 200 lb Weight 220 lb Physical Exam 2 Narrative: GENERAL: Patient is lethargic NECK: No jugular vein distension. [] HEENT: No cyanosis. No icterus. No pallor. [] HEART: Regular S1 and S2. LUNGS: Clear to auscultate bilaterally. [] EXTREMITIES: Lower extremities with 1+ edema bilaterally. Urinary Catheter Management: Bowling: Cath Placed During This Visit: yes Reason for Continuing Indwelling Catheter: Accurate Measurement of Urinary Output in Critically Ill Patients Urinary Catheter Date of Insertion: 08/04/23 Urinary Catheter Time of Insertion: 20:50 Data 08/07/23 03:36 08/07/23 03:36 A&P Assessment and plan (1) ST elevation (STEMI) myocardial infarction: Borderline findings on EKG. S/p PCI of RCA with 1 stent. Later found to have a subdural hematoma. Antiplatelet and anticoagulation therapy was stopped. Per procedure performing e learning developer and hospitalist, family updated and on board. Code status was changed to DNR/DNI. High risk of stent thrombosis given no antiplatelet therapy (with acute head bleed). Family declined transfer to center with neurosurgery availability. Continue beta-christine. Statin therapy. Will need evaluation with neurology/neurosurgery regarding safe initiation of antiplatelet therapy when able. He is at risk of stent thrombosis. (2) Nicotine dependence, unspecified, uncomplicated: Patient chronic smoker (3) Diabetes: Per medicine team (4) Hypertension: Per medicine team Attestations 2 Medical Necessity Statement*: Care expected to cross 2 midnights. Coding Level of Care Code Acute Code for [facility] Diagnoses ST elevation (STEMI) myocardial infarction I21.3 Nicotine dependence, unspecified, uncomplicated F17.200 Diabetes E11.9 Hypertension I10
[2023-08-06 07:46] LABS: Glucose Point of Care 324 mg/dL (70-110)
[2023-08-06 07:47] LABS: Anion Gap 13.8 (5-19); Aspartate Amino Transferase 18 U/L (0-40); Potassium 4.8 mmol/L (3.5-5.1)
[2023-08-06] MEDS: pantoprazole 40 mg SDV IVP ×2 (09:28→18:02)
[2023-08-06] MEDS: levETIRAcetam 500 MG/100 ML PREMIX 400 MG IV ×2 (09:28→21:05)
[2023-08-06] MEDS: sodium chloride 0.9% 1,000 ML 100 ML IV (09:28)
[2023-08-06] MEDS: carvedilol 3.125 mg Tablet PO ×2 (09:31→18:04)
[2023-08-06] MEDS: amiodarone 200 mg Tablet 400 MG PO ×2 (10:31→18:03)
[2023-08-06 12:19] LABS: Glucose Point of Care 286 mg/dL (70-110)
[2023-08-06 17:37] LABS: Glucose Point of Care 380 mg/dL (70-110)
[2023-08-06 20:49] LABS: Glucose Point of Care 381 mg/dL (70-110)
[2023-08-06] MEDS: insulin glargine 100 units/1 mL 10 UNIT SUBCUT (21:03)
[2023-08-06] MEDS: atorvastatin 40 mg Tablet 80 MG PO (21:04)
--- NOTE | 2023-08-06 21:05 | P.PN_ITS ---
Subjective 2 Subjective: He remains more consistently alert and awake, still have oral diet resumed. Denies any headache. No chest pain or pressure. No trouble breathing. Vitals/I&O/Wt Last Vital Signs Temp 97.5 F L 08/06/23 19:57 Pulse 60 08/06/23 20:33 Resp 18 08/06/23 20:33 BP 132/57 08/06/23 19:30 Pulse Ox 94 08/06/23 20:33 O2 Del Method Room Air 08/06/23 20:33 O2 Flow Rate 2 08/05/23 19:55 08/06/23 08/06/23 08/06/23 06:59 14:59 22:59 Intake Total 1100 / 1100 720 / 1820 Output Total 425 / 925 1600 / 1600 Balance -425 / 1778.5953 1100 / 1100 -880 / 220 Weight last 48 hrs Weight 87.997 kg Weight 90.718 kg Physical Exam 2 Narrative: Accompanied by his daughter. Const: GENERAL APPEARANCE: cooperative, disheveled and lethargic O RIENTATION/CONSCIOUSNESS: Yes lethargic HENMT: COMMON NORMALS: oropharynx normal Neck/C-Spine: COMMON NORMALS: no JVD Resp: COMMON NORMALS: normal respiratory effort and clear to auscultation bilaterally AUSCULTATION: clear to auscultation bilaterally Cardio: COMMON NORMALS: no JVD, regular rhythm, S1 normal heart sound present, S2 normal heart sound present and No murmurs present (Cardio) RHYTHM: regular rhythm HEART SOUNDS: S1 normal heart sound present and S2 normal heart sound present GI: COMMON NORMALS: Normal to inspection, nondistended, normoactive bowel sounds present, Soft to palpation and non-tender PALPATION: Yes Soft to palpation Extremity: COMMON NORMALS: no joint enlargement and no pedal edema Neuro: COMMON NORMALS: moves all extremities SENSORIUM/ORIENTATION: Yes lethargic Skin: OTHER: Chronic venous stasis changes Dry scaly skin Urinary Catheter Management: Bowling: Cath Placed During This Visit: yes Reason for Continuing Indwelling Catheter: Accurate Measurement of Urinary Output in Critically Ill Patients Urinary Catheter Date of Insertion: 08/04/23 Urinary Catheter Time of Insertion: 20:50 Data 08/06/23 06:28 08/06/23 06:28 A&P Assessment and plan (1) ST elevation (STEMI) myocardial infarction: Qualifiers: Involved coronary artery: unspecified coronary artery Qualified Code(s): I21.3 - ST elevation (STEMI) myocardial infarction of unspecified site (2) Peripheral neuropathy: (3) PAD (peripheral artery disease): (4) Nicotine dependence, unspecified, uncomplicated: (5) Depression with anxiety: (6) Hypertension: Qualifiers: Hypertension type: essential hypertension Qualified Code(s): I10 - Essential (primary) hypertension (7) Memory deficit following unspecified cerebrovascular disease: (8) Diabetes: Qualifiers: Diabetes mellitus type: type 2 Diabetes mellitus [facility] insulin use: without computer terminal operator use Diabetes mellitus complication status: with hyperglycemia Qualified Code(s): E11.65 - Type 2 diabetes mellitus with hyperglycemia (9) Hyperglycemia: (10) Metabolic acidosis: (11) Hyperkalemia: (12) JAMES (acute kidney injury): Plan Subdural hematoma: So far without further symptoms. Mental status is improved from history obtained from his daughter. He is awake and alert. Trial of oral intake. Transfer out of ICU, continue monitoring on CSU at this time. Will stop IV fluids. Started on low-dose carvedilol, continue to monitor blood pressure. Minimize hypertension. As symptomatically he is doing better, limited goals of care without surgical intervention we discussed not stressing him out further with repeating CT scan. PPI prophylaxis. SCD VTE prophylaxis. Discussed with clinical case manager. STEMI Reviewed cardiology documentation. Can stop amiodarone. Has been started on low-dose beta-christine. TTE reviewed, noted 20% ejection fraction. Global left ventricular hypokinesis. Currently not a candidate for antiplatelet medication. Atorvastatin. BUN reviewed, creatinine reviewed, noted with improvement. Monitor blood pressure. Lisinopril had been previously held. Hyperglycemia with metabolic acidosis: Accu-Cheks reviewed, noted still hyperglycemia. Stop fluid infusion with D5. Change diet to consist carbohydrate. DKA resolved on review of chemistry, started on subcutaneous insulin. Continue slight scale insulin. MonitorBlood glucose. Stop IV fluids. Recheck chemistry, magnesium, phosphorus. A1c reviewed, noted 15.9. [place], arrhythmias after angioplasty: Amiodarone drip stopped. Was transition to oral amiodarone. Reviewed cardiology assessment and documentation. Can stop amiodarone. Hyperkalemia Resolved JAMES: BUN reviewed, creatinine reviewed, noted improving. Related to STEMI, recheck chemistry. Bowling in place. Monitor ALPHONSO. Reviewed kidney ultrasound. Noted no hydronephrosis, bilateral simple renal cyst. Stop IV fluids. Hold lisinopril Peripheral vascular disease continue atorvastatin Venous stasis dermatitis Active smoker: Nicotine replacement as needed. Patient lives in an apartment, he will most likely need skilled nursing placement, daughter is in agreement DNR/DNI discussed with the daughter Dementia: Previously following with neurology. Was not found to be candidate to starting on medications. Severe anterograde dementia, unable to manage his own affairs, longstanding lack of adherence with medical treatments, unsafe to live at home. PICC in place. Attestations 2 Medical Necessity Statement*: Continue admission for assessment management of subdural hematoma, status post STEMI, stenting, DKA, additional medical problems as above. Diagnoses ST elevation (STEMI) myocardial infarction I21.3 Involved coronary artery: unspecified coronary artery Peripheral neuropathy G62.9 PAD (peripheral artery disease) I73.9 Nicotine dependence, unspecified, uncomplicated F17.200 Depression with anxiety F41.8 Essential hypertension I10 Hypertension type: essential hypertension Memory deficit following unspecified cerebrovascular disease I69.911 Type 2 diabetes mellitus with hyperglycemia, without long-term current use of insulin E11.65 Diabetes mellitus type: type 2 Diabetes mellitus [facility] insulin use: without computer terminal operator use Diabetes mellitus complication status: with hyperglycemia Hyperglycemia R73.9 Metabolic acidosis E87.20 Hyperkalemia E87.5 JAMES (acute kidney injury) N17.9
[2023-08-07] VITALS (12 sets, daily range): BP systolic 110–154; BP diastolic 50–61; PULSE 51–67; RESP 9–22; TEMP 36.4–36.6; O2SAT 92–99; BMI 29.6
[2023-08-07 03:53] LABS: Basophils % 0.4 %; Eosinophils # 0.2 10^3/uL (0.0-0.8); Eosinophils % 1.5 %; Hematocrit 40.6 % (37-53); Lymphocytes # 2.3 10^3/uL (0.8-4.8); Lymphocytes % 22.9 %; Mean Corpuscular HGB Conc 32.5 g/dL (30-55); Mean Corpuscular Hemoglobin 30.3 pg (27-33); Mean Corpuscular Volume 93.1 fl (82-101); Mean Platelet Volume 13.2 fL (7.4-10.4); Monocytes # 0.9 10^3/uL (0.2-0.9); Monocytes % 8.6 %; Neutrophils # 6.74 10^3/uL (1.8-7.7); Neutrophils % 66.3 %; Nucleated Red Blood Cells % 0 %; Platelet Count 128 10^3/cmm (157-399); Red Blood Count 4.36 10^6/uL (3.85-5.65); Red Cell Distribution Width 12.6 % (12.1-15.1); White Blood Count 10.16 10^3/uL (3.29-11.43)
[2023-08-07 04:10] LABS: Alanine Aminotransferase 12 U/L (0-41); Albumin Level 2.9 g/dL (3.5-5.2); Alkaline Phosphatase 70 U/L (40-130); Aspartate Amino Transferase 16 U/L (0-40); Blood Urea Nitrogen 29 mg/dL (8-23); Calcium 8.5 mg/dL (8.5-10.5); Carbon Dioxide 24 mmol/L (22-29); Chloride 109 mmol/L (98-107); Globulin 3.1 g/dL (1.3-4.6); Glomerular Filtration Rate 73.9 mL/min (90-130); Glucose 146 mg/dL (65-115); Magnesium 1.9 mg/dL (1.7-2.3); Osmolality Calculated 304 mOsm/kg (285-295); Phosphorus 3.1 mg/dL (2.5-4.5); Sodium 143 mmol/L (136-145); Total Bilirubin 0.4 mg/dL (0.15-1.2)
[2023-08-07 07:02] LABS: Glucose Point of Care 201 mg/dL (70-110)
[2023-08-07] MEDS: carvedilol 3.125 mg Tablet PO ×2 (08:32→18:11)
[2023-08-07] MEDS: pantoprazole 40 mg SDV IVP ×2 (08:32→18:11)
[2023-08-07] MEDS: insulin lispro 100 unit/1 mL SUBCUT ×4 (08:33→20:23)
--- NOTE | 2023-08-07 08:57 | PM.PN ---
Subjective Subjective: Patient doing well. Denies chest pain. Vitals/I&O/Wt Last Vital Signs Temp 97.8 F 08/07/23 07:09 Pulse 58 L 08/07/23 07:09 Resp 13 08/07/23 07:09 BP 135/61 08/07/23 07:09 Pulse Ox 97 08/07/23 07:09 O2 Del Method Room Air 08/07/23 07:09 O2 Flow Rate 2 08/05/23 19:55 08/06/23 08/07/23 08/07/23 22:59 06:59 14:59 Intake Total 2300 / 3400 Output Total 2150 / 2150 400 / 2550 Balance 150 / 1250 -400 / 850 Weight last 48 hrs Weight 195 lb Weight 194 lb Physical Exam Narrative: GENERAL: Patient is lethargic NECK: No jugular vein distension. [] HEENT: No cyanosis. No icterus. No pallor. [] HEART: Regular S1 and S2. LUNGS: Clear to auscultate bilaterally. [] EXTREMITIES: Lower extremities with 1+ edema bilaterally. Urinary Catheter Management: Bowling: Cath Placed During This Visit: yes Reason for Continuing Indwelling Catheter: Accurate Measurement of Urinary Output in Critically Ill Patients Urinary Catheter Date of Insertion: 08/04/23 Urinary Catheter Time of Insertion: 20:50 Data 08/07/23 03:36 08/07/23 03:36 A&P Assessment and plan (1) ST elevation (STEMI) myocardial infarction: Patient staying stable at this time. Borderline findings on EKG. S/p PCI of RCA with 1 stent. Later found to have a subdural hematoma. Antiplatelet and anticoagulation therapy was stopped. Per procedure performing winter intern and hospitalist, family updated and on board. Code status was changed to DNR/DNI. High risk of stent thrombosis given no antiplatelet therapy (with acute head bleed). Family declined transfer to center with neurosurgery availability. Continue beta-christine. Statin therapy. Will need evaluation with neurology/neurosurgery regarding safe initiation of antiplatelet therapy when able. He is at risk of stent thrombosis. Qualifiers: Involved coronary artery: unspecified coronary artery Qualified Code(s): I21.3 - ST elevation (STEMI) myocardial infarction of unspecified site (2) Nicotine dependence, unspecified, uncomplicated: Patient chronic smoker (3) Diabetes: Per medicine team Qualifiers: Diabetes mellitus type: type 2 Diabetes mellitus shelter insulin use: without shelter use Diabetes mellitus complication status: with hyperglycemia Qualified Code(s): E11.65 - Type 2 diabetes mellitus with hyperglycemia (4) Hypertension: Per medicine team Qualifiers: Hypertension type: essential hypertension Qualified Code(s): I10 - Essential (primary) hypertension Attestations Medical Necessity Statement*: Care expected to cross 2 midnights. Coding Level of Care Code Acute Code for [facility] Diagnoses ST elevation (STEMI) myocardial infarction I21.3 Involved coronary artery: unspecified coronary artery Nicotine dependence, unspecified, uncomplicated F17.200 Type 2 diabetes mellitus with hyperglycemia, without long-term current use of insulin E11.65 Diabetes mellitus type: type 2 Diabetes mellitus shelter insulin use: without terminal operations supervisor use Diabetes mellitus complication status: with hyperglycemia Essential hypertension I10 Hypertension type: essential hypertension
--- NOTE | 2023-08-07 09:06 | PC.SOCIAL ---
Pg 2 IMM Explained to pt & family Pg 2 IMM. No questions voiced. Provided pt a copy. Initialed, dated, & timed a copy & placed in chart.
[2023-08-07 12:04] LABS: Glucose Point of Care 317 mg/dL (70-110)
[2023-08-07] MEDS: levETIRAcetam 500 MG/100 ML PREMIX 400 MG IV ×2 (12:14→21:43)
[2023-08-07 18:48] LABS: Glucose Point of Care 355 mg/dL (70-110)
[2023-08-07 19:34] LABS: Glucose Point of Care 381 mg/dL (70-110)
[2023-08-07] MEDS: atorvastatin 40 mg Tablet 80 MG PO (20:23)
[2023-08-07] MEDS: insulin glargine 100 units/1 mL 10 UNIT SUBCUT (20:24)
--- NOTE | 2023-08-07 20:58 | P.PN_ITS ---
Subjective 2 Subjective: He reports he is doing well. Denies headache, vision changes. No shortness of breath or chest pain. When asked if has any needs, denies in a joking manner. Vitals/I&O/Wt Last Vital Signs Temp 97.5 F L 08/07/23 16:00 Pulse 67 08/07/23 20:53 Resp 22 H 08/07/23 20:53 BP 154/61 08/07/23 20:53 Pulse Ox 94 08/07/23 19:43 O2 Del Method Room Air 08/07/23 19:43 O2 Flow Rate 2 08/05/23 19:55 08/07/23 08/07/23 08/07/23 06:59 14:59 22:59 Intake Total 240 / 240 240 / 480 Output Total 400 / 2550 650 / 650 350 / 1000 Balance -400 / 850 -410 / -410 -110 / -520 Weight last 48 hrs Weight 88.451 kg Weight 87.997 kg Physical Exam 2 Narrative: Sitting up at bedside, having lunch. Const: GENERAL APPEARANCE: cooperative, disheveled and lethargic O RIENTATION/CONSCIOUSNESS: Yes lethargic HENMT: COMMON NORMALS: oropharynx normal Neck/C-Spine: COMMON NORMALS: no JVD Resp: COMMON NORMALS: normal respiratory effort and clear to auscultation bilaterally AUSCULTATION: clear to auscultation bilaterally Cardio: COMMON NORMALS: no JVD, regular rhythm, S1 normal heart sound present, S2 normal heart sound present and No murmurs present (Cardio) RHYTHM: regular rhythm HEART SOUNDS: S1 normal heart sound present and S2 normal heart sound present GI: COMMON NORMALS: Normal to inspection, nondistended, normoactive bowel sounds present, Soft to palpation and non-tender PALPATION: Yes Soft to palpation Extremity: COMMON NORMALS: no joint enlargement and no pedal edema Neuro: COMMON NORMALS: moves all extremities SENSORIUM/ORIENTATION: Yes lethargic Skin: OTHER: Chronic venous stasis changes Dry scaly skin Urinary Catheter Management: Bowling: Cath Placed During This Visit: yes Reason for Continuing Indwelling Catheter: Accurate Measurement of Urinary Output in Critically Ill Patients Urinary Catheter Date of Insertion: 08/04/23 Urinary Catheter Time of Insertion: 20:50 Data 08/07/23 03:36 08/07/23 03:36 A&P Assessment and plan (1) ST elevation (STEMI) myocardial infarction: Qualifiers: Involved coronary artery: unspecified coronary artery Qualified Code(s): I21.3 - ST elevation (STEMI) myocardial infarction of unspecified site (2) Peripheral neuropathy: (3) PAD (peripheral artery disease): (4) Nicotine dependence, unspecified, uncomplicated: (5) Depression with anxiety: (6) Hypertension: Qualifiers: Hypertension type: essential hypertension Qualified Code(s): I10 - Essential (primary) hypertension (7) Memory deficit following unspecified cerebrovascular disease: (8) Diabetes: Qualifiers: Diabetes mellitus type: type 2 Diabetes mellitus emt intermediate insulin use: without long-term use Diabetes mellitus complication status: with hyperglycemia Qualified Code(s): E11.65 - Type 2 diabetes mellitus with hyperglycemia (9) Hyperglycemia: (10) Metabolic acidosis: (11) Hyperkalemia: (12) JAMES (acute kidney injury): Plan Subdural hematoma: Without additional symptoms so far. Continue to optimize blood pressure control. Noted blood pressure fluctuating from as low as 110/50 but noted as high as 150/61 this evening. Will add low-dose amlodipine. Monitor blood pressure. Reduce blood pressure spikes with subdural hematoma, AV malformation. Mental status is improved. He is awake and alert. Trial of oral intake. Transfer out of ICU, continue monitoring on CSU at this time. Will stop IV fluids. Started on low-dose carvedilol, continue to monitor blood pressure. Minimize hypertension. As symptomatically he is doing better, limited goals of care without surgical intervention we discussed not stressing him out further with repeating CT scan. PPI prophylaxis. SCD VTE prophylaxis. Discussed with adult protective caseworker in rounds, continued arrangements for SNF. STEMI Reviewed cardiology documentation. Can stop amiodarone. Has been started on low-dose beta-christine. TTE reviewed, noted 20% ejection fraction. Global left ventricular hypokinesis. Currently not a candidate for antiplatelet medication. Atorvastatin. BUN reviewed, creatinine reviewed, noted with improvement. Monitor blood pressure. Lisinopril had been previously held. Hyperglycemia with metabolic acidosis: Accu-Cheks reviewed, noted still hyperglycemia. Stop fluid infusion with D5. Change diet to consist carbohydrate. DKA resolved on review of chemistry, started on subcutaneous insulin. Continue slight scale insulin. MonitorBlood glucose. Stop IV fluids. Recheck chemistry, magnesium, phosphorus. A1c reviewed, noted 15.9. Marc arrhythmias after angioplasty: Amiodarone drip stopped. Was transition to oral amiodarone. Reviewed cardiology assessment and documentation. Can stop amiodarone. Hyperkalemia Resolved JAMES: Resolving. Will cancel additional chemistry for now. Related to STEMI, recheck chemistry. Bowling in place. Monitor ALPHONSO. Reviewed kidney ultrasound. Noted no hydronephrosis, bilateral simple renal cyst. Hold lisinopril Peripheral vascular disease continue atorvastatin Venous stasis dermatitis Active smoker: Nicotine replacement as needed. Dementia: Previously following with neurology. Was not found to be candidate to starting on medications. Severe anterograde dementia, unable to manage his own affairs, longstanding lack of adherence with medical treatments, unsafe to live at home. PICC in place. Attestations 2 Medical Necessity Statement*: Continue admission for optimization of blood pressure control with subdural hematoma, status post STEMI, stenting, DKA, additional medical problems as above. Arrangements for SNF. Diagnoses ST elevation (STEMI) myocardial infarction I21.3 Involved coronary artery: unspecified coronary artery Peripheral neuropathy G62.9 PAD (peripheral artery disease) I73.9 Nicotine dependence, unspecified, uncomplicated F17.200 Depression with anxiety F41.8 Essential hypertension I10 Hypertension type: essential hypertension Memory deficit following unspecified cerebrovascular disease I69.911 Type 2 diabetes mellitus with hyperglycemia, without long-term current use of insulin E11.65 Diabetes mellitus type: type 2 Diabetes mellitus emt intermediate insulin use: without emt intermediate use Diabetes mellitus complication status: with hyperglycemia Hyperglycemia R73.9 Metabolic acidosis E87.20 Hyperkalemia E87.5 JAMES (acute kidney injury) N17.9
[2023-08-07] MEDS: amlodipine 5 mg Tablet 2.5 MG PO (21:44)
[2023-08-08] VITALS (10 sets, daily range): BP systolic 95–165; BP diastolic 58–86; PULSE 58–71; RESP 10–20; TEMP 36.5–36.6; O2SAT 94–97; BMI 29.6
[2023-08-08 06:18] LABS: Glucose Point of Care 220 mg/dL (70-110)
[2023-08-08] MEDS: insulin lispro 100 unit/1 mL SUBCUT ×4 (08:21→20:47)
[2023-08-08] MEDS: carvedilol 3.125 mg Tablet PO ×2 (08:22→18:13)
[2023-08-08] MEDS: pantoprazole 40 mg SDV IVP ×2 (08:53→17:59)
[2023-08-08] MEDS: levETIRAcetam 500 MG/100 ML PREMIX 400 MG IV ×2 (10:14→21:00)
[2023-08-08 11:14] LABS: Glucose Point of Care 329 mg/dL (70-110)
--- NOTE | 2023-08-08 16:45 | P.PN_ITS ---
Subjective 2 Subjective: Patient is doing well. Denies chest pain. Vitals/I&O/Wt Last Vital Signs Temp 97.8 F 08/08/23 08:00 Pulse 68 08/08/23 12:00 Resp 18 08/08/23 12:00 BP 140/65 08/08/23 12:00 Pulse Ox 96 08/08/23 12:00 O2 Del Method Room Air 08/08/23 12:00 O2 Flow Rate 2 08/05/23 19:55 08/08/23 08/08/23 08/08/23 06:59 14:59 22:59 Intake Total 340 / 920 820 / 820 Output Total 350 / 1350 1400 / 1400 Balance -10 / -430 -580 / -580 Weight last 48 hrs Weight 195 lb Weight 195 lb Physical Exam 2 Narrative: GENERAL: Patient is lethargic NECK: No jugular vein distension. [] HEENT: No cyanosis. No icterus. No pallor. [] HEART: Regular S1 and S2. LUNGS: Clear to auscultate bilaterally. [] EXTREMITIES: Lower extremities with 1+ edema bilaterally. Urinary Catheter Management: Bowling: Cath Placed During This Visit: yes Reason for Continuing Indwelling Catheter: Accurate Measurement of Urinary Output in Critically Ill Patients Urinary Catheter Date of Insertion: 08/04/23 Urinary Catheter Time of Insertion: 20:50 Data 08/07/23 03:36 08/07/23 03:36 A&P Assessment and plan (1) ST elevation (STEMI) myocardial infarction: Patient states chest pain-free with no significant EKG changes. Reviewed risk of stent thrombosis discussed with patient. He shows understanding Borderline findings on EKG. S/p PCI of RCA with 1 stent. Later found to have a subdural hematoma. Antiplatelet and anticoagulation therapy was stopped. Per procedure performing environmental engineer scientist and hospitalist, family updated and on board. Code status was changed to DNR/DNI. High risk of stent thrombosis given no antiplatelet therapy (with acute head bleed). Family declined transfer to center with neurosurgery availability. Continue beta-christine. Statin therapy. Will need evaluation with neurology/neurosurgery regarding safe initiation of antiplatelet therapy when able. He is at risk of stent thrombosis. Qualifiers: Involved coronary artery: unspecified coronary artery Qualified Code(s): I21.3 - ST elevation (STEMI) myocardial infarction of unspecified site (2) Nicotine dependence, unspecified, uncomplicated: Patient chronic smoker (3) Diabetes: Per medicine team Qualifiers: Diabetes mellitus type: type 2 Diabetes mellitus ferry terminal supervisor insulin use: without ferry terminal supervisor use Diabetes mellitus complication status: with hyperglycemia Qualified Code(s): E11.65 - Type 2 diabetes mellitus with hyperglycemia (4) Hypertension: Per medicine team Qualifiers: Hypertension type: essential hypertension Qualified Code(s): I10 - Essential (primary) hypertension Attestations 2 Medical Necessity Statement*: Care expected to cross 2midnights. Coding Level of Care Code Acute Code for [facility] Diagnoses ST elevation (STEMI) myocardial infarction I21.3 Involved coronary artery: unspecified coronary artery Nicotine dependence, unspecified, uncomplicated F17.200 Type 2 diabetes mellitus with hyperglycemia, without long-term current use of insulin E11.65 Diabetes mellitus type: type 2 Diabetes mellitus ferry terminal supervisor insulin use: without ferry terminal supervisor use Diabetes mellitus complication status: with hyperglycemia Essential hypertension I10 Hypertension type: essential hypertension
[2023-08-08 16:50] LABS: Glucose Point of Care 269 mg/dL (70-110)
[2023-08-08] MEDS: amlodipine 5 mg Tablet 2.5 MG PO (18:13)
[2023-08-08 20:19] LABS: Glucose Point of Care 317 mg/dL (70-110)
[2023-08-08] MEDS: insulin glargine 100 units/1 mL 10 UNIT SUBCUT (20:47)
[2023-08-08] MEDS: atorvastatin 40 mg Tablet 80 MG PO (20:47)
--- NOTE | 2023-08-08 22:35 | P.PN_ITS ---
Subjective 2 Subjective: No headache, dizziness, vision changes. No chest pain or pressure. Vitals/I&O/Wt Last Vital Signs Temp 97.7 F 08/08/23 20:00 Pulse 69 08/08/23 20:57 Resp 18 08/08/23 20:57 BP 138/59 08/08/23 20:00 Pulse Ox 96 08/08/23 20:57 O2 Del Method Room Air 08/08/23 20:57 O2 Flow Rate 2 08/05/23 19:55 08/08/23 08/08/23 08/08/23 06:59 14:59 22:59 Intake Total 340 / 920 820 / 820 100 / 920 Output Total 350 / 1350 1400 / 1400 1000 / 2400 Balance -10 / -430 -580 / -580 -900 / -1480 Weight last 48 hrs Weight 88.451 kg Weight 88.451 kg Physical Exam 2 Narrative: Sitting up at bedside, having lunch. Const: GENERAL APPEARANCE: cooperative, disheveled and lethargic O RIENTATION/CONSCIOUSNESS: Yes lethargic HENMT: COMMON NORMALS: oropharynx normal Neck/C-Spine: COMMON NORMALS: no JVD Resp: COMMON NORMALS: normal respiratory effort and clear to auscultation bilaterally AUSCULTATION: clear to auscultation bilaterally Cardio: COMMON NORMALS: no JVD, regular rhythm, S1 normal heart sound present, S2 normal heart sound present and No murmurs present (Cardio) RHYTHM: regular rhythm HEART SOUNDS: S1 normal heart sound present and S2 normal heart sound present GI: COMMON NORMALS: Normal to inspection, nondistended, normoactive bowel sounds present, Soft to palpation and non-tender PALPATION: Yes Soft to palpation Extremity: COMMON NORMALS: no joint enlargement and no pedal edema Neuro: COMMON NORMALS: moves all extremities SENSORIUM/ORIENTATION: Yes lethargic Skin: OTHER: Chronic venous stasis changes Urinary Catheter Management: Bowling: Cath Placed During This Visit: yes Reason for Continuing Indwelling Catheter: Accurate Measurement of Urinary Output in Critically Ill Patients Urinary Catheter Date of Insertion: 08/04/23 Urinary Catheter Time of Insertion: 20:50 Data 08/07/23 03:36 08/07/23 03:36 A&P Assessment and plan (1) ST elevation (STEMI) myocardial infarction: Qualifiers: Involved coronary artery: unspecified coronary artery Qualified Code(s): I21.3 - ST elevation (STEMI) myocardial infarction of unspecified site (2) Peripheral neuropathy: (3) PAD (peripheral artery disease): (4) Nicotine dependence, unspecified, uncomplicated: (5) Depression with anxiety: (6) Hypertension: Qualifiers: Hypertension type: essential hypertension Qualified Code(s): I10 - Essential (primary) hypertension (7) Memory deficit following unspecified cerebrovascular disease: (8) Diabetes: Qualifiers: Diabetes mellitus type: type 2 Diabetes mellitus long-term insulin use: without termite technician use Diabetes mellitus complication status: with hyperglycemia Qualified Code(s): E11.65 - Type 2 diabetes mellitus with hyperglycemia (9) Hyperglycemia: (10) Metabolic acidosis: (11) Hyperkalemia: (12) JAMES (acute kidney injury): Plan Subdural hematoma: Without changes. Follow-up with neurology for additional assessment for consideration whether antiplatelets may be feasible at some point, although this appears to be unlikely without and possibly even with intervention of some sort, neurosurgical versus possibly interventional radiology embolization. Continue to optimize blood pressure control. This morning blood pressure did get up to 165/86. Better in the afternoon. Heart rate in the 60s dipping into 50s. Not much room to go up on carvedilol. Risk of further bradycardia. Will increase amlodipine to 5 mg. Risk of hypotension. PPI prophylaxis. SCD VTE prophylaxis. Discussed with nurse outreach case manager, reviewed PT note, Pending arrangements for SNF. STEMI Reviewed cardiology note. follow-up with neurology. Risk of stent thrombosis and/or stenosis. TTE reviewed, noted 20% ejection fraction. Global left ventricular hypokinesis. Currently not a candidate for antiplatelet medication. Atorvastatin. Hyperglycemia with metabolic acidosis: Noted again hyperglycemia On review of Accu-Cheks. Increase Lantus dose to 12 units. Stop fluid infusion with D5. Change diet to consist carbohydrate. DKA resolved on review of chemistry, started on subcutaneous insulin. Continue slight scale insulin. MonitorBlood glucose. Stop IV fluids. Recheck chemistry, magnesium, phosphorus. A1c reviewed, noted 15.9. Bigeminy, arrhythmias after angioplasty: Amiodarone drip stopped. Was transition to oral amiodarone. Reviewed cardiology assessment and documentation. Can stop amiodarone. Hyperkalemia Resolved JAMES: Resolving. Will cancel additional chemistry for now. Related to STEMI, recheck chemistry. Bowling in place. Monitor ALPHONSO. Reviewed kidney ultrasound. Noted no hydronephrosis, bilateral simple renal cyst. Hold lisinopril Peripheral vascular disease continue atorvastatin Venous stasis dermatitis Active smoker: Nicotine replacement as needed. Dementia: Previously following with neurology. Was not found to be candidate to starting on medications. Severe anterograde dementia, unable to manage his own affairs, longstanding lack of adherence with medical treatments, unsafe to live at home. PICC in place. Attestations 2 Medical Necessity Statement*: Continue admission for optimization of blood pressure control with subdural hematoma, status post STEMI, stenting, DKA, additional medical problems as above. Arrangements for SNF. Diagnoses ST elevation (STEMI) myocardial infarction I21.3 Involved coronary artery: unspecified coronary artery Peripheral neuropathy G62.9 PAD (peripheral artery disease) I73.9 Nicotine dependence, unspecified, uncomplicated F17.200 Depression with anxiety F41.8 Essential hypertension I10 Hypertension type: essential hypertension Memory deficit following unspecified cerebrovascular disease I69.911 Type 2 diabetes mellitus with hyperglycemia, without long-term current use of insulin E11.65 Diabetes mellitus type: type 2 Diabetes mellitus long-term insulin use: without termite technician use Diabetes mellitus complication status: with hyperglycemia Hyperglycemia R73.9 Metabolic acidosis E87.20 Hyperkalemia E87.5 JAMES (acute kidney injury) N17.9
[2023-08-09] VITALS (10 sets, daily range): BP systolic 118–153; BP diastolic 57–75; PULSE 60–77; RESP 15–25; TEMP 36.6–36.8; O2SAT 92–98
[2023-08-09 06:56] LABS: Glucose Point of Care 220 mg/dL (70-110)
--- NOTE | 2023-08-09 08:11 | PM.PN ---
Subjective Subjective: Patient is chest pain free. BP staying borderline elevated. Vitals/I&O/Wt Last Vital Signs Temp 97.9 F 08/09/23 07:28 Pulse 65 08/09/23 07:28 Resp 15 08/09/23 07:28 BP 146/61 08/09/23 07:28 Pulse Ox 92 08/09/23 07:28 O2 Del Method Room Air 08/09/23 07:28 O2 Flow Rate 2 08/05/23 19:55 08/08/23 08/09/23 08/09/23 22:59 06:59 14:59 Intake Total 340 / 1160 Output Total 1100 / 2500 1650 / 4150 Balance -760 / -1340 -1650 / -2990 Weight last 48 hrs Weight 190 lb 9.6 oz Weight 195 lb Physical Exam Narrative: GENERAL: Patient is alert and oriented NECK: No jugular vein distension. [] HEENT: No cyanosis. No icterus. No pallor. [] HEART: Regular S1 and S2. LUNGS: Clear to auscultate bilaterally. [] EXTREMITIES: Lower extremities with 1+ edema bilaterally. Data 08/07/23 03:36 08/11/23 04:04 A&P Assessment and plan (1) ST elevation (STEMI) myocardial infarction: Patient states chest pain-free with no significant EKG changes. Reviewed risk of stent thrombosis discussed with patient. He shows understanding Borderline findings on EKG. S/p PCI of RCA with 1 stent. Later found to have a subdural hematoma. Antiplatelet and anticoagulation therapy was stopped. Per procedure performing slagger and hospitalist, family updated and on board. Code status was changed to DNR/DNI. High risk of stent thrombosis given no antiplatelet therapy (with acute head bleed). Family declined transfer to center with neurosurgery availability. Continue beta-christine. Statin therapy. Will need evaluation with neurology/neurosurgery regarding safe initiation of antiplatelet therapy when able. He is at risk of stent thrombosis. Will need better control of BP and uptitration of antihypertensive medications. Qualifiers: Involved coronary artery: unspecified coronary artery Qualified Code(s): I21.3 - ST elevation (STEMI) myocardial infarction of unspecified site (2) Nicotine dependence, unspecified, uncomplicated: Patient chronic smoker (3) Diabetes: Per medicine team Qualifiers: Diabetes mellitus type: type 2 Diabetes mellitus equipment operator intermodal yard insulin use: without equipment operator intermodal yard use Diabetes mellitus complication status: with hyperglycemia Qualified Code(s): E11.65 - Type 2 diabetes mellitus with hyperglycemia (4) Hypertension: Per medicine team Qualifiers: Hypertension type: essential hypertension Qualified Code(s): I10 - Essential (primary) hypertension Attestations Medical Necessity Statement*: Care expected to cross 2 midnights. Coding Level of Care Code Acute Code for [facility] Diagnoses ST elevation (STEMI) myocardial infarction I21.3 Involved coronary artery: unspecified coronary artery Nicotine dependence, unspecified, uncomplicated F17.200 Type 2 diabetes mellitus with hyperglycemia, without long-term current use of insulin E11.65 Diabetes mellitus type: type 2 Diabetes mellitus equipment operator intermodal yard insulin use: without equipment operator intermodal yard use Diabetes mellitus complication status: with hyperglycemia Essential hypertension I10 Hypertension type: essential hypertension
[2023-08-09] MEDS: insulin lispro 100 unit/1 mL SUBCUT ×4 (08:32→21:54)
[2023-08-09] MEDS: amlodipine 5 mg Tablet PO (08:33)
[2023-08-09] MEDS: pantoprazole 40 mg SDV IVP ×2 (08:33→17:45)
[2023-08-09] MEDS: carvedilol 3.125 mg Tablet PO ×2 (08:33→17:45)
--- NOTE | 2023-08-09 09:15 | PC.SOCIAL ---
IMM Updated Updated pt on IMM. No questions voiced. Provided pt a copy. Initialed, dated, & timed copy in chart.
[2023-08-09] MEDS: levETIRAcetam 500 MG/100 ML PREMIX 400 MG IV ×2 (10:04→21:51)
[2023-08-09 11:29] LABS: Glucose Point of Care 336 mg/dL (70-110)
[2023-08-09 16:40] LABS: Glucose Point of Care 344 mg/dL (70-110)
--- NOTE | 2023-08-09 20:18 | PM.PN ---
Subjective Subjective: He reports he is doing well. Denies chest pain or pressure. Denies any headache. Vitals/I&O/Wt Last Vital Signs Temp 98.0 F 08/09/23 11:52 Pulse 69 08/09/23 19:33 Resp 25 H 08/09/23 19:33 BP 121/57 08/09/23 19:33 Pulse Ox 98 08/09/23 19:33 O2 Del Method Room Air 08/09/23 11:52 O2 Flow Rate 2 08/05/23 19:55 08/09/23 08/09/23 08/09/23 06:59 14:59 22:59 Intake Total 460 / 460 240 / 700 Output Total 1650 / 4150 750 / 750 Balance -1650 / -2990 460 / 460 -510 / -50 Weight last 48 hrs Weight 86.455 kg Weight 88.451 kg Physical Exam Const: GENERAL APPEARANCE: cooperative, disheveled and lethargic ORIENTATION/CONSCIOUSNESS: Yes lethargic HENMT: COMMON NORMALS: oropharynx normal Neck/C-Spine: COMMON NORMALS: no JVD Resp: COMMON NORMALS: normal respiratory effort and clear to auscultation bilaterally AUSCULTATION: clear to auscultation bilaterally Cardio: COMMON NORMALS: no JVD, regular rhythm, S1 normal heart sound present, S2 normal heart sound present and No murmurs present (Cardio) RHYTHM: regular rhythm HEART SOUNDS: S1 normal heart sound present and S2 normal heart sound present GI: COMMON NORMALS: Normal to inspection, nondistended, normoactive bowel sounds present, Soft to palpation and non-tender PALPATION: Yes Soft to palpation Extremity: COMMON NORMALS: no joint enlargement and no pedal edema Neuro: COMMON NORMALS: moves all extremities SENSORIUM/ORIENTATION: Yes lethargic Skin: OTHER: Chronic venous stasis changes Urinary Catheter Management: Bowling: Cath Placed During This Visit: yes Reason for Continuing Indwelling Catheter: Accurate Measurement of Urinary Output in Critically Ill Patients Urinary Catheter Date of Insertion: 08/04/23 Urinary Catheter Time of Insertion: 20:50 Data 08/07/23 03:36 08/07/23 03:36 A&P Assessment and plan (1) ST elevation (STEMI) myocardial infarction: Qualifiers: Involved coronary artery: unspecified coronary artery Qualified Code(s): I21.3 - ST elevation (STEMI) myocardial infarction of unspecified site (2) Peripheral neuropathy: (3) PAD (peripheral artery disease): (4) Nicotine dependence, unspecified, uncomplicated: (5) Depression with anxiety: (6) Hypertension: Qualifiers: Hypertension type: essential hypertension Qualified Code(s): I10 - Essential (primary) hypertension (7) Memory deficit following unspecified cerebrovascular disease: (8) Diabetes: Qualifiers: Diabetes mellitus type: type 2 Diabetes mellitus fdc insulin use: without terminal operations supervisor use Diabetes mellitus complication status: with hyperglycemia Qualified Code(s): E11.65 - Type 2 diabetes mellitus with hyperglycemia (9) Hyperglycemia: (10) Metabolic acidosis: (11) Hyperkalemia: (12) JAMES (acute kidney injury): Plan Subdural hematoma: This morning blood pressure much better after amlodipine dose was adjusted up to 5 mg, doing well through the rest of the day. Will hold off on additional change for now. Continue to monitor blood pressure. Reviewed cardiology note. Follow-up with neurology for additional assessment for consideration whether antiplatelets may be feasible at some point, although this appears to be unlikely without and possibly even with intervention of some sort, neurosurgical versus possibly interventional radiology embolization. Continue to optimize blood pressure control. This morning blood pressure did get up to 165/86. Better in the afternoon. Heart rate in the 60s dipping into 50s. Not much room to go up on carvedilol. Risk of further bradycardia. Risk of hypotension. PPI prophylaxis. SCD VTE prophylaxis. Reviewed PT note. Reviewed registered nurse hh case manager note. Discussed with registered nurse hh case manager. STEMI Reviewed cardiology note. follow-up with neurology. Risk of stent thrombosis and/or stenosis. TTE reviewed, noted 20% ejection fraction. Global left ventricular hypokinesis. Currently not a candidate for antiplatelet medication. Atorvastatin. Hyperglycemia with metabolic acidosis: Reviewed Accu-Cheks. Hyperglycemia. Long-acting insulin dose adjusted to 12 units. Consist carbohydrate diet. DKA resolved on review of chemistry, started on subcutaneous insulin. Continue slight scale insulin. MonitorBlood glucose. Stop IV fluids. Recheck chemistry, magnesium, phosphorus. A1c reviewed, noted 15.9. Bigeminy, arrhythmias after angioplasty: Amiodarone drip stopped. Was transition to oral amiodarone. Reviewed cardiology assessment and documentation. Can stop amiodarone. Hyperkalemia Resolved JAMES: Resolving. Will cancel additional chemistry for now. Related to STEMI, recheck chemistry. Bowling in place. Monitor ALPHONSO. Reviewed kidney ultrasound. Noted no hydronephrosis, bilateral simple renal cyst. Hold lisinopril Peripheral vascular disease continue atorvastatin Venous stasis dermatitis Active smoker: Nicotine replacement as needed. Dementia: Previously following with neurology. Was not found to be candidate to starting on medications. Severe anterograde dementia, unable to manage his own affairs, longstanding lack of adherence with medical treatments, unsafe to live at home. PICC in place. Attestations Medical Necessity Statement*: Continue admission for assessment management of subdural hematoma, optimization of blood pressure control, post discharge planning and arrangements. Diagnoses ST elevation (STEMI) myocardial infarction I21.3 Involved coronary artery: unspecified coronary artery Peripheral neuropathy G62.9 PAD (peripheral artery disease) I73.9 Nicotine dependence, unspecified, uncomplicated F17.200 Depression with anxiety F41.8 Essential hypertension I10 Hypertension type: essential hypertension Memory deficit following unspecified cerebrovascular disease I69.911 Type 2 diabetes mellitus with hyperglycemia, without long-term current use of insulin E11.65 Diabetes mellitus type: type 2 Diabetes mellitus fdc insulin use: without terminal operations supervisor use Diabetes mellitus complication status: with hyperglycemia Hyperglycemia R73.9 Metabolic acidosis E87.20 Hyperkalemia E87.5 JAMES (acute kidney injury) N17.9
[2023-08-09] MEDS: atorvastatin 40 mg Tablet 80 MG PO (20:22)
[2023-08-09 21:21] LABS: Glucose Point of Care 309 mg/dL (70-110)
[2023-08-09] MEDS: insulin glargine 100 units/1 mL 12 UNIT SUBCUT (21:54)
[2023-08-10] VITALS (11 sets, daily range): BP systolic 111–160; BP diastolic 46–79; PULSE 58–73; RESP 16–28; TEMP 36.4–36.7; O2SAT 94–96
[2023-08-10 06:31] LABS: Glucose Point of Care 188 mg/dL (70-110)
[2023-08-10] MEDS: insulin lispro 100 unit/1 mL SUBCUT ×4 (08:31→21:27)
[2023-08-10] MEDS: carvedilol 3.125 mg Tablet PO ×2 (08:31→17:28)
[2023-08-10] MEDS: amlodipine 5 mg Tablet PO (08:31)
[2023-08-10] MEDS: pantoprazole 40 mg SDV IVP ×2 (08:32→17:28)
[2023-08-10] MEDS: lisinopril 2.5 mg Tablet PO (10:21)
[2023-08-10] MEDS: levETIRAcetam 500 MG/100 ML PREMIX 400 MG IV ×2 (10:21→21:26)
[2023-08-10 12:04] LABS: Glucose Point of Care 267 mg/dL (70-110)
--- NOTE | 2023-08-10 12:23 | USR_ITS ---
PROCEDURE INFORMATION: Exam: US Duplex Left Lower Extremity Veins, Limited Exam date and time: 08/10/2023 2:33 PM Age: 68 years old Clinical indication: Device placement; Other: Assess for dvt TECHNIQUE: Imaging protocol: Real-time duplex ultrasound of the left extremity with 2-D kern scale, color Doppler flow and spectral waveform analysis including responses to compression and other maneuvers (when performed) with image documentation. Limited exam focused on the left lower extremity veins. COMPARISON: US renal BI* [id number] 08/05/2023 4:59 PM FINDINGS: Left deep veins: Unremarkable. The common femoral, femoral, proximal profunda femoral and popliteal veins are patent without thrombus. Normal Doppler waveforms. Normal compressibility and/or augmentation response. Superficial veins: Unremarkable. Saphenofemoral junction is patent without thrombus. Soft tissues: Unremarkable. US/[place] [id number] IMPRESSION: No evidence of deep vein thrombosis.
[2023-08-10 16:49] LABS: Glucose Point of Care 381 mg/dL (70-110)
[2023-08-10] MEDS: atorvastatin 40 mg Tablet 80 MG PO (20:14)
--- NOTE | 2023-08-10 20:36 | PM.PN ---
Subjective Subjective: He denies any symptoms. His daughter noticed bulging of the vein anterior to the left latham which is new appearing while he is sitting up. Vitals/I&O/Wt Last Vital Signs Temp 98.1 F 08/10/23 19:25 Pulse 71 08/10/23 19:25 Resp 25 H 08/10/23 19:25 BP 111/46 08/10/23 19:25 Pulse Ox 96 08/10/23 19:25 O2 Del Method Room Air 08/10/23 19:25 O2 Flow Rate 2 08/05/23 19:55 08/10/23 08/10/23 08/10/23 06:59 14:59 22:59 Intake Total 940 / 2220 580 / 580 540 / 1120 Output Total 950 / 2000 380 / 380 650 / 1030 Balance -10 / 220 200 / 200 -110 / 90 Weight last 48 hrs Weight 87.498 kg Weight 86.455 kg Physical Exam Narrative: Visited by his daughter. Const: GENERAL APPEARANCE: cooperative, disheveled and lethargic ORIENTATION/CONSCIOUSNESS: Yes lethargic HENMT: COMMON NORMALS: oropharynx normal Neck/C-Spine: COMMON NORMALS: no JVD Resp: COMMON NORMALS: normal respiratory effort and clear to auscultation bilaterally AUSCULTATION: clear to auscultation bilaterally Cardio: COMMON NORMALS: no JVD, regular rhythm, S1 normal heart sound present, S2 normal heart sound present and No murmurs present (Cardio) RHYTHM: regular rhythm HEART SOUNDS: S1 normal heart sound present and S2 normal heart sound present GI: COMMON NORMALS: Normal to inspection, nondistended, normoactive bowel sounds present, Soft to palpation and non-tender PALPATION: Yes Soft to palpation Extremity: COMMON NORMALS: no joint enlargement and no pedal edema OTHER: New varicose vein anterior left latham. Neuro: COMMON NORMALS: moves all extremities SENSORIUM/ORIENTATION: Yes lethargic Skin: OTHER: Chronic venous stasis changes Urinary Catheter Management: Bowling: Cath Placed During This Visit: yes, but has since been removed by the nurse Reason for Continuing Indwelling Catheter: Decision to DC Catheter Urinary Catheter Date of Insertion: 08/04/23 Urinary Catheter Time of Insertion: 20:50 Date Urinary Catheter Removed: 08/10/23 Time Urinary Catheter Discontinued: 05:50 Data 08/07/23 03:36 08/07/23 03:36 A&P Assessment and plan (1) ST elevation (STEMI) myocardial infarction: Qualifiers: Involved coronary artery: unspecified coronary artery Qualified Code(s): I21.3 - ST elevation (STEMI) myocardial infarction of unspecified site (2) Peripheral neuropathy: (3) PAD (peripheral artery disease): (4) Nicotine dependence, unspecified, uncomplicated: (5) Depression with anxiety: (6) Hypertension: Qualifiers: Hypertension type: essential hypertension Qualified Code(s): I10 - Essential (primary) hypertension (7) Memory deficit following unspecified cerebrovascular disease: (8) Diabetes: Qualifiers: Diabetes mellitus type: type 2 Diabetes mellitus terminal operator insulin use: without group home use Diabetes mellitus complication status: with hyperglycemia Qualified Code(s): E11.65 - Type 2 diabetes mellitus with hyperglycemia (9) Hyperglycemia: (10) Metabolic acidosis: (11) Hyperkalemia: (12) JAMES (acute kidney injury): Plan Subdural hematoma: Additional hypertension episodes this morning. Hypertension still not well-controlled, risk of additional bleeding, continue to optimize blood pressures. Discussed with them additional lisinopril. Risk of rising creatinine, again on presentation, reassess kidney function. Continue to monitor blood pressure. Follow-up with neurology for additional assessment for consideration whether antiplatelets may be feasible at some point, although this appears to be unlikely without and possibly even with intervention of some sort, neurosurgical versus possibly interventional radiology embolization. PPI prophylaxis. SCD VTE prophylaxis. STEMI Reviewed cardiology note. follow-up with neurology. Risk of stent thrombosis and/or stenosis. TTE reviewed, noted 20% ejection fraction. Global left ventricular hypokinesis. Currently not a candidate for antiplatelet medication. Atorvastatin. New varicose veins anterior left latham: Per history obtained from his daughter this is new, assess venous duplex. Hyperglycemia with metabolic acidosis: Glucose suboptimally controlled still, increase Lantus to 14 units. Reviewed Accu-Cheks. Consist carbohydrate diet. DKA resolved on review of chemistry, started on subcutaneous insulin. Continue slight scale insulin. MonitorBlood glucose. Stop IV fluids. Recheck chemistry, magnesium, phosphorus. A1c reviewed, noted 15.9. Bigeminy, arrhythmias after angioplasty: Amiodarone drip stopped. Was transition to oral amiodarone. Reviewed cardiology assessment and documentation. Can stop amiodarone. Hyperkalemia Resolved JAMES: Resolving. Will cancel additional chemistry for now. Related to STEMI, recheck chemistry. Bowling in place. Monitor ALPHONSO. Reviewed kidney ultrasound. Noted no hydronephrosis, bilateral simple renal cyst. Hold lisinopril Peripheral vascular disease continue atorvastatin Venous stasis dermatitis Active smoker: Nicotine replacement as needed. Dementia: Previously following with neurology. Was not found to be candidate to starting on medications. Severe anterograde dementia, unable to manage his own affairs, longstanding lack of adherence with medical treatments, unsafe to live at home. PICC in place. Attestations Medical Necessity Statement*: Continue admission for optimization of uncontrolled hypertension with underlying subdural hematoma to minimize rebleeding, optimize glycemic control with uncontrolled diabetes, continue post discharge planning and arrangements. Diagnoses ST elevation (STEMI) myocardial infarction I21.3 Involved coronary artery: unspecified coronary artery Peripheral neuropathy G62.9 PAD (peripheral artery disease) I73.9 Nicotine dependence, unspecified, uncomplicated F17.200 Depression with anxiety F41.8 Essential hypertension I10 Hypertension type: essential hypertension Memory deficit following unspecified cerebrovascular disease I69.911 Type 2 diabetes mellitus with hyperglycemia, without long-term current use of insulin E11.65 Diabetes mellitus type: type 2 Diabetes mellitus terminal operator insulin use: without group home use Diabetes mellitus complication status: with hyperglycemia Hyperglycemia R73.9 Metabolic acidosis E87.20 Hyperkalemia E87.5 JAMES (acute kidney injury) N17.9
[2023-08-10 20:47] LABS: Glucose Point of Care 433 mg/dL (70-110)
[2023-08-10] MEDS: insulin glargine 100 units/1 mL 12 UNIT SUBCUT (22:54)
[2023-08-11] VITALS (12 sets, daily range): BP systolic 110–157; BP diastolic 46–60; PULSE 57–75; RESP 15–29; TEMP 36.6–37; O2SAT 95–97
[2023-08-11 05:07] LABS: Blood Urea Nitrogen 18 mg/dL (8-23); Calcium 8.8 mg/dL (8.5-10.5); Carbon Dioxide 23 mmol/L (22-29); Chloride 107 mmol/L (98-107); Glomerular Filtration Rate 66.2 mL/min (90-130); Glucose 87 mg/dL (65-115); Osmolality Calculated 289 mOsm/kg (285-295); Sodium 139 mmol/L (136-145)
[2023-08-11 05:09] LABS: Anion Gap 12.9 (5-19); Potassium 3.9 mmol/L (3.5-5.1)
[2023-08-11 06:44] LABS: Glucose Point of Care 126 mg/dL (70-110)
[2023-08-11] MEDS: amlodipine 5 mg Tablet PO (08:25)
[2023-08-11] MEDS: carvedilol 3.125 mg Tablet PO ×2 (08:25→17:24)
[2023-08-11] MEDS: lisinopril 2.5 mg Tablet PO (08:25)
[2023-08-11] MEDS: pantoprazole 40 mg SDV IVP ×2 (08:25→17:24)
[2023-08-11 09:36] LABS: Magnesium 1.9 mg/dL (1.7-2.3)
[2023-08-11] MEDS: levETIRAcetam 500 MG/100 ML PREMIX 400 MG IV ×2 (10:48→21:59)
--- NOTE | 2023-08-11 12:12 | P.PN_ITS ---
Subjective 2 Subjective: States he is doing all right. No headache. No chest pain or pressure. Vitals/I&O/Wt Last Vital Signs Temp 97.9 F 08/11/23 08:00 Pulse 75 08/11/23 08:00 Resp 29 H 08/11/23 08:00 BP 138/57 08/11/23 08:00 Pulse Ox 95 08/11/23 08:00 O2 Del Method Room Air 08/11/23 08:00 O2 Flow Rate 2 08/05/23 19:55 08/10/23 08/11/23 08/11/23 22:59 06:59 14:59 Intake Total 640 / 1220 430 / 430 Output Total 650 / 1030 650 / 1680 475 / 475 Balance -10 / 190 -650 / -460 -45 / -45 Weight last 48 hrs Weight 86.863 kg Weight 87.498 kg Physical Exam 2 Const: GENERAL APPEARANCE: cooperative, disheveled and lethargic O RIENTATION/CONSCIOUSNESS: Yes lethargic HENMT: COMMON NORMALS: oropharynx normal Neck/C-Spine: COMMON NORMALS: no JVD Resp: COMMON NORMALS: normal respiratory effort and clear to auscultation bilaterally AUSCULTATION: clear to auscultation bilaterally Cardio: COMMON NORMALS: no JVD, regular rhythm, S1 normal heart sound present, S2 normal heart sound present and No murmurs present (Cardio) RHYTHM: regular rhythm HEART SOUNDS: S1 normal heart sound present and S2 normal heart sound present GI: COMMON NORMALS: Normal to inspection, nondistended, normoactive bowel sounds present, Soft to palpation and non-tender PALPATION: Yes Soft to palpation Extremity: COMMON NORMALS: no joint enlargement and no pedal edema OTHER: New varicose vein anterior left latham. Neuro: COMMON NORMALS: moves all extremities SENSORIUM/ORIENTATION: Yes lethargic Skin: OTHER: Chronic venous stasis changes Urinary Catheter Management: Bowling: Cath Placed During This Visit: yes, but has since been removed by the nurse Reason for Continuing Indwelling Catheter: Decision to DC Catheter Urinary Catheter Date of Insertion: 08/04/23 Urinary Catheter Time of Insertion: 20:50 Date Urinary Catheter Removed: 08/10/23 Time Urinary Catheter Discontinued: 05:50 Data 08/07/23 03:36 08/11/23 04:04 A&P Assessment and plan (1) ST elevation (STEMI) myocardial infarction: Qualifiers: Involved coronary artery: unspecified coronary artery Qualified Code(s): I21.3 - ST elevation (STEMI) myocardial infarction of unspecified site (2) Peripheral neuropathy: (3) PAD (peripheral artery disease): (4) Nicotine dependence, unspecified, uncomplicated: (5) Depression with anxiety: (6) Hypertension: Qualifiers: Hypertension type: essential hypertension Qualified Code(s): I10 - Essential (primary) hypertension (7) Memory deficit following unspecified cerebrovascular disease: (8) Diabetes: Qualifiers: Diabetes mellitus type: type 2 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 Discussed with him we will increase lisinopril to 5 mg daily. Continue other antihypertensives. Hypertension still not well-controlled, risk of additional bleeding, continue to optimize blood pressures. Avoid hypotension. At risk of hypotension. Reviewed vitals, BMP, magnesium. Repeat requested. Will give 1 g of magnesium. Continue to monitor blood pressure. Follow-up with neurology for additional assessment for consideration whether antiplatelets may be feasible at some point, although this appears to be unlikely without and possibly even with intervention of some sort, neurosurgical versus possibly interventional radiology embolization. PPI prophylaxis. SCD VTE prophylaxis. STEMI Reviewed cardiology note. follow-up with neurology. Risk of stent thrombosis and/or stenosis. TTE reviewed, noted 20% ejection fraction. Global left ventricular hypokinesis. Currently not a candidate for antiplatelet medication. Atorvastatin. New varicose veins anterior left latham: Per history obtained from his daughter this is new, assess venous duplex. Hyperglycemia with metabolic acidosis: Glucose labile, 300 this afternoon but was down to 87 this morning. Will go back down to 12 units. Glucose suboptimally controlled still, increase Lantus to 14 units. Reviewed Accu-Cheks. Consist carbohydrate diet. DKA resolved on review of chemistry, started on subcutaneous insulin. Continue slight scale insulin. MonitorBlood glucose. Stop IV fluids. Recheck chemistry, magnesium, phosphorus. A1c reviewed, noted 15.9. [place], arrhythmias after angioplasty: Amiodarone drip stopped. Was transition to oral amiodarone. Reviewed cardiology assessment and documentation. Can stop amiodarone. Hyperkalemia Resolved JAMES: Resolving. Will cancel additional chemistry for now. Related to STEMI, recheck chemistry. Bowling in place. Monitor ALPHONSO. Reviewed kidney ultrasound. Noted no hydronephrosis, bilateral simple renal cyst. Hold lisinopril Peripheral vascular disease continue atorvastatin Venous stasis dermatitis Active smoker: Nicotine replacement as needed. Dementia: Previously following with neurology. Was not found to be candidate to starting on medications. Severe anterograde dementia, unable to manage his own affairs, longstanding lack of adherence with medical treatments, unsafe to live at home. PICC in place. Attestations 2 Medical Necessity Statement*: Continue admission for optimization of uncontrolled hypertension with underlying subdural hematoma to minimize rebleeding, optimize glycemic control with uncontrolled diabetes, continue post discharge planning and arrangements. and Moderate MDM includes number and complexity of problems actively addressed during encounter and described risk of complication, morbidity or mortality of management as documented Diagnoses ST elevation (STEMI) myocardial infarction I21.3 Involved coronary artery: unspecified coronary artery Peripheral neuropathy G62.9 PAD (peripheral artery disease) I73.9 Nicotine dependence, unspecified, uncomplicated F17.200 Depression with anxiety F41.8 Essential hypertension I10 Hypertension type: essential hypertension Memory deficit following unspecified cerebrovascular disease I69.911 Type 2 diabetes mellitus with hyperglycemia, without long-term current use of insulin E11.65 Diabetes mellitus type: type 2 Diabetes mellitus [facility] insulin use: without regional intermodal truck driver use Diabetes mellitus complication status: with hyperglycemia Hyperglycemia R73.9 Metabolic acidosis E87.20 Hyperkalemia E87.5 JAMES (acute kidney injury) N17.9
[2023-08-11 12:14] LABS: Glucose Point of Care 301 mg/dL (70-110)
[2023-08-11] MEDS: insulin lispro 100 unit/1 mL SUBCUT ×3 (12:26→21:48)
[2023-08-11] MEDS: magnesium sulfate premix 1 GM/100 ML PIGGYBACK IV (13:45)
[2023-08-11 17:24] LABS: Glucose Point of Care 423 mg/dL (70-110)
[2023-08-11 21:14] LABS: Glucose Point of Care 263 mg/dL (70-110)
[2023-08-11] MEDS: atorvastatin 40 mg Tablet 80 MG PO (21:47)
[2023-08-11] MEDS: insulin glargine 100 units/1 mL 12 UNIT SUBCUT (21:48)
[2023-08-12] VITALS (11 sets, daily range): BP systolic 115–144; BP diastolic 50–80; PULSE 57–70; RESP 16–23; TEMP 36.5–36.8; O2SAT 94–100
[2023-08-12 05:09] LABS: Glucose Point of Care 127 mg/dL (70-110)
[2023-08-12] MEDS: amlodipine 5 mg Tablet PO (08:29)
[2023-08-12] MEDS: carvedilol 3.125 mg Tablet PO ×2 (08:29→17:23)
[2023-08-12] MEDS: pantoprazole 40 mg SDV IVP ×2 (08:30→17:23)
[2023-08-12] MEDS: lisinopril 2.5 mg Tablet 5 MG PO (08:30)
[2023-08-12] MEDS: levETIRAcetam 500 MG/100 ML PREMIX 400 MG IV ×2 (11:50→21:40)
[2023-08-12 12:27] LABS: Glucose Point of Care 258 mg/dL (70-110)
[2023-08-12] MEDS: insulin lispro 100 unit/1 mL SUBCUT ×3 (12:30→21:40)
--- NOTE | 2023-08-12 14:57 | PM.PN ---
Subjective Subjective: Hospital course, labs appreciated. Seen with at bedside. Patient denies any nausea, vomiting, headache, chest pain. Denies any weakness in any of his limbs, dizziness, headache. Blood work appreciated. Vitals/I&O/Wt Last Vital Signs Temp 98.3 F 08/12/23 08:00 Pulse 69 08/12/23 08:00 Resp 17 08/12/23 08:00 BP 144/56 08/12/23 08:00 Pulse Ox 94 08/12/23 08:00 O2 Del Method Room Air 08/12/23 08:00 O2 Flow Rate 2 08/05/23 19:55 08/11/23 08/12/23 08/12/23 22:59 06:59 14:59 Intake Total 460 / 1210 100 / 1310 580 / 580 Output Total 725 / 1200 Balance 460 / 735 -625 / 110 580 / 580 Weight last 48 hrs Weight 85.275 kg Weight 86.863 kg Physical Exam Narrative: General: No acute distress, AO x3 HEENT: PERRLA, pupils bilaterally equal and reactive Chest: Normal vesicular breath sounds, no added sounds, equal good air entry bilaterally CVS: S1-S2 regular, no murmurs, no tachycardia, no gallops, no rubs Abdomen: Soft, nontender, no organomegaly, bowel sounds present Neuro: No focal deficits, no facial deformity, AO x3, power 5/5 in all limbs Urinary Catheter Management: Bowling: Cath Placed During This Visit: yes, but has since been removed by the nurse Reason for Continuing Indwelling Catheter: Decision to DC Catheter Urinary Catheter Date of Insertion: 08/04/23 Urinary Catheter Time of Insertion: 20:50 Date Urinary Catheter Removed: 08/10/23 Time Urinary Catheter Discontinued: 05:50 Data 08/07/23 03:36 08/11/23 04:04 A&P Assessment and plan (1) ST elevation (STEMI) myocardial infarction: Qualifiers: Involved coronary artery: unspecified coronary artery Qualified Code(s): I21.3 - ST elevation (STEMI) myocardial infarction of unspecified site (2) Diabetes: Qualifiers: Diabetes mellitus type: type 2 Diabetes mellitus residential insulin 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 Diabetes mellitus complication status: with hyperglycemia Qualified Code(s): E11.65 - Type 2 diabetes mellitus with hyperglycemia (3) Hypertension: Qualifiers: Hypertension type: essential hypertension Qualified Code(s): I10 - Essential (primary) hypertension (4) Peripheral neuropathy: (5) PAD (peripheral artery disease): (6) Nicotine dependence, unspecified, uncomplicated: (7) Depression with anxiety: (8) Memory deficit following unspecified cerebrovascular disease: (9) Hyperglycemia: (10) Metabolic acidosis: (11) Hyperkalemia: (12) JAMES (acute kidney injury): (13) Subdural hematoma: Plan Subdural hematoma: Seen on CT head. No neurological changes. Monitor blood pressures. Continue to hold off on antiplatelet and aspirin therapy. Goal blood pressure less than 140/90 mmHg. Continue with current dose of Keppra. Will transition to oral therapy on discharge. Seizure precaution. ST elevation [place]: Post emergency PCI. Not on antiplatelet therapy and aspirin because of subdural hematoma. Denies any chest pain. Continue with carvedilol 3.125 mg twice daily. Appreciate echocardiogram. Type 2 diabetes mellitus: Uncontrolled. A1c of 15. Blood sugar still elevated. Continue carb consistent diet. Increase Lantus to 20 units twice daily, insulin sliding scale to moderate dose protocol. Patient would most likely need to be discharged on insulin. He is agreeable. JAMES: Resolved. Monitor BMP daily. Medical reconciliation done for nephrotoxic drugs. Increase lisinopril. Hypertension: Goal blood pressure less than 140/90 mmHg with mean over 65. Continue with current dose of carvedilol, amlodipine, increasing dose of lisinopril. Monitor blood pressures. Peripheral vascular disease continue atorvastatin Venous stasis dermatitis Active smoker: Nicotine replacement as needed. Dementia: Previously following with neurology. Was not found to be candidate to starting on medications. Severe anterograde dementia, unable to manage his own affairs, longstanding lack of adherence with medical treatments, unsafe to live at home. CODE STATUS: Discussed in detail with the family and patient again. DNR/DNI. Carb consistent diet Protonix for PUD prophylaxis. Both patient and family is aware that unfortunately patient cannot get antiplatelet therapy and aspirin given diagnosis of subdural hematoma which puts him at a higher risk of in-stent thrombosis. They also understand that putting him on the antiplatelet therapy and aspirin can cause him to have worsening in neurological component given subdural hematoma. Discharge plan: Plan to discharge to SNF for further rehabitation. Case management aware. Attestations Medical Necessity Statement*: Requires further hospitalization for hemodynamic monitoring in a patient who was admitted for ST elevation IA, developed subdural hematoma while antiplatelet therapy is withheld and safe discharge planning is sought. 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
--- NOTE | 2023-08-12 15:55 | PC.SOCIAL ---
IMM Update pg 2 of IMM updated and reviewed w/ patients daughter via telephone. Copy left @ bedside and copy dated, initialed and placed in chart.
[2023-08-12 17:07] LABS: Glucose Point of Care 380 mg/dL (70-110)
[2023-08-12] MEDS: insulin glargine 100 units/1 mL 20 UNIT SUBCUT (17:23)
[2023-08-12 21:30] LABS: Glucose Point of Care 244 mg/dL (70-110)
[2023-08-12] MEDS: atorvastatin 40 mg Tablet 80 MG PO (21:40)
[2023-08-13] VITALS (13 sets, daily range): BP systolic 100–134; BP diastolic 34–87; PULSE 52–86; RESP 15–26; TEMP 36.5–36.9; O2SAT 92–99
[2023-08-13 03:58] LABS: Basophils # 0.1 10^3/uL (0.0-0.1); Basophils % 0.7 %; Eosinophils # 0.2 10^3/uL (0.0-0.8); Eosinophils % 1.9 %; Hematocrit 39.4 % (37-53); Lymphocytes # 1.5 10^3/uL (0.8-4.8); Lymphocytes % 14.3 %; Mean Corpuscular Hemoglobin 29.8 pg (27-33); Mean Corpuscular Volume 93.1 fl (82-101); Mean Platelet Volume 12.9 fL (7.4-10.4); Monocytes # 1.4 10^3/uL (0.2-0.9); Monocytes % 13.3 %; Neutrophils # 7.18 10^3/uL (1.8-7.7); Neutrophils % 69.1 %; Nucleated Red Blood Cells % 0 %; Platelet Count 176 10^3/cmm (157-399); Red Blood Count 4.23 10^6/uL (3.85-5.65); Red Cell Distribution Width 12.6 % (12.1-15.1); White Blood Count 10.38 10^3/uL (3.29-11.43)
[2023-08-13 04:19] LABS: Alanine Aminotransferase 15 U/L (0-41); Alkaline Phosphatase 80 U/L (40-130); Anion Gap 14.9 (5-19); Aspartate Amino Transferase 16 U/L (0-40); Blood Urea Nitrogen 20 mg/dL (8-23); Calcium 8.9 mg/dL (8.5-10.5); Carbon Dioxide 24 mmol/L (22-29); Chloride 103 mmol/L (98-107); Globulin 3.7 g/dL (1.3-4.6); Glomerular Filtration Rate 66.2 mL/min (90-130); Glucose 109 mg/dL (65-115); Osmolality Calculated 289 mOsm/kg (285-295); Potassium 3.9 mmol/L (3.5-5.1); Sodium 138 mmol/L (136-145); Total Bilirubin 0.4 mg/dL (0.15-1.2); Total Protein 6.7 g/dL (6.6-8.7)
[2023-08-13 06:43] LABS: Glucose Point of Care 148 mg/dL (70-110)
--- NOTE | 2023-08-13 08:38 | PM.PN ---
Subjective Subjective: Patient is doing well. No chest pain. Vitals/I&O/Wt Last Vital Signs Temp 97.9 F 08/13/23 04:17 Pulse 76 08/13/23 08:29 Resp 16 08/13/23 08:29 BP 123/47 08/13/23 04:17 Pulse Ox 95 08/13/23 08:29 O2 Del Method Room Air 08/13/23 08:29 O2 Flow Rate 2 08/05/23 19:55 08/12/23 08/13/23 08/13/23 22:59 06:59 14:59 Intake Total 580 / 1160 Output Total 500 / 500 400 / 900 Balance 80 / 660 -400 / 260 Weight last 48 hrs Weight 188 lb Physical Exam Narrative: GENERAL: Patient is alert and oriented NECK: No jugular vein distension. [] HEENT: No cyanosis. No icterus. No pallor. [] HEART: Regular S1 and S2. LUNGS: Clear to auscultate bilaterally. [] EXTREMITIES: Lower extremities with 1+ edema bilaterally. Urinary Catheter Management: Bowling: Cath Placed During This Visit: yes, but has since been removed by the nurse Reason for Continuing Indwelling Catheter: Decision to DC Catheter Urinary Catheter Date of Insertion: 08/04/23 Urinary Catheter Time of Insertion: 20:50 Date Urinary Catheter Removed: 08/10/23 Time Urinary Catheter Discontinued: 05:50 Data 08/13/23 03:51 08/13/23 03:51 A&P Assessment and plan (1) ST elevation (STEMI) myocardial infarction: Patient had PCI of RCA. Not on antiplatelet therapy secondary to subdural bleeding. Patient and family aware of risk of stent thrombosis. Will need follow-up with neurology for discussion regarding safe initiation of antiplatelet therapy if possible in future. Qualifiers: Involved coronary artery: unspecified coronary artery Qualified Code(s): I21.3 - ST elevation (STEMI) myocardial infarction of unspecified site (2) Nicotine dependence, unspecified, uncomplicated: Patient chronic smoker (3) Diabetes: Per medicine team Qualifiers: Diabetes mellitus type: type 2 Diabetes mellitus [facility] insulin use: without intermediate manager use Diabetes mellitus complication status: with hyperglycemia Qualified Code(s): E11.65 - Type 2 diabetes mellitus with hyperglycemia (4) Hypertension: Per medicine team Qualifiers: Hypertension type: essential hypertension Qualified Code(s): I10 - Essential (primary) hypertension Attestations Medical Necessity Statement*: Care expected to cross 2 midnights. Coding Level of Care Code Acute Code for [facility] Fwd Diagnoses ST elevation (STEMI) myocardial infarction I21.3 Involved coronary artery: unspecified coronary artery Nicotine dependence, unspecified, uncomplicated F17.200 Type 2 diabetes mellitus with hyperglycemia, without long-term current use of insulin E11.65 Diabetes mellitus type: type 2 Diabetes mellitus [facility] insulin use: without intermediate manager use Diabetes mellitus complication status: with hyperglycemia Essential hypertension I10 Hypertension type: essential hypertension
[2023-08-13] MEDS: insulin glargine 100 units/1 mL 20 UNIT SUBCUT ×2 (08:42→17:51)
[2023-08-13] MEDS: carvedilol 3.125 mg Tablet PO ×2 (08:42→17:51)
[2023-08-13] MEDS: lisinopril 10 mg Tablet PO (08:42)
[2023-08-13] MEDS: amlodipine 5 mg Tablet PO (08:42)
[2023-08-13] MEDS: insulin lispro 100 unit/1 mL SUBCUT ×4 (08:42→21:46)
[2023-08-13] MEDS: pantoprazole 40 mg SDV IVP ×2 (08:42→17:51)
[2023-08-13] MEDS: levETIRAcetam 500 MG/100 ML PREMIX 400 MG IV ×2 (11:11→21:32)
[2023-08-13 11:29] LABS: Glucose Point of Care 187 mg/dL (70-110)
--- NOTE | 2023-08-13 11:49 | PC.NURSE ---
Patients weight was measured this morning. Nursing made sure that the bed was zeroed out and it was just the patient and normal bedding.
--- NOTE | 2023-08-13 15:48 | PM.PN ---
Subjective Subjective: No acute events. Denies any weakness in any of the arms or legs. Able to ambulate. Denies any chest pain. Blood work appreciated. Vitals/I&O/Wt Last Vital Signs Temp 98.2 F 08/13/23 08:00 Pulse 60 08/13/23 14:00 Resp 16 08/13/23 08:29 BP 121/53 08/13/23 14:16 Pulse Ox 94 08/13/23 14:16 O2 Del Method Room Air 08/13/23 14:16 O2 Flow Rate 2 08/05/23 19:55 08/13/23 08/13/23 08/13/23 06:59 14:59 22:59 Intake Total 580 / 580 Output Total 400 / 900 225 / 225 Balance -400 / 260 355 / 355 Weight last 48 hrs Weight 88.904 kg Weight 85.275 kg Physical Exam Narrative: General: No acute distress, AO x3 HEENT: PERRLA, pupils bilaterally equal and reactive Chest: Normal vesicular breath sounds, no added sounds, equal good air entry bilaterally CVS: S1-S2 regular, no murmurs, no tachycardia, no gallops, no rubs Abdomen: Soft, nontender, no organomegaly, bowel sounds present Neuro: No focal deficits, no facial deformity, AO x3, power 5/5 in all limbs Urinary Catheter Management: Bowling: Cath Placed During This Visit: yes, but has since been removed by the nurse Reason for Continuing Indwelling Catheter: Decision to DC Catheter Urinary Catheter Date of Insertion: 08/04/23 Urinary Catheter Time of Insertion: 20:50 Date Urinary Catheter Removed: 08/10/23 Time Urinary Catheter Discontinued: 05:50 Data 08/13/23 03:51 08/13/23 03:51 A&P Assessment and plan (1) ST elevation (STEMI) myocardial infarction: Qualifiers: Involved coronary artery: unspecified coronary artery Qualified Code(s): I21.3 - ST elevation (STEMI) myocardial infarction of unspecified site (2) Diabetes: Qualifiers: Diabetes mellitus type: type 2 Diabetes mellitus group home insulin use: without computer terminal operator use Diabetes mellitus complication status: with hyperglycemia Qualified Code(s): E11.65 - Type 2 diabetes mellitus with hyperglycemia (3) Hypertension: Qualifiers: Hypertension type: essential hypertension Qualified Code(s): I10 - Essential (primary) hypertension (4) Peripheral neuropathy: (5) PAD (peripheral artery disease): (6) Nicotine dependence, unspecified, uncomplicated: (7) Depression with anxiety: (8) Memory deficit following unspecified cerebrovascular disease: (9) Hyperglycemia: (10) Metabolic acidosis: (11) Hyperkalemia: (12) JAMES (acute kidney injury): (13) Subdural hematoma: Plan Subdural hematoma: Seen on CT head. No neurological changes. Monitor blood pressures. Continue to hold off on antiplatelet and aspirin therapy. Goal blood pressure less than 140/90 mmHg. Continue with current dose of Keppra. Will transition to oral therapy on discharge. Seizure precaution. ST elevation [place]: Post emergency PCI. Not on antiplatelet therapy and aspirin because of subdural hematoma. Denies any chest pain. Continue with carvedilol 3.125 mg twice daily. Appreciate echocardiogram. Type 2 diabetes mellitus: Uncontrolled. A1c of 15. Blood sugar still elevated. Continue carb consistent diet. Increase Lantus to 20 units twice daily, insulin sliding scale to moderate dose protocol. Patient would most likely need to be discharged on insulin. He is agreeable. JAMES: Resolved. Monitor BMP daily. Medical reconciliation done for nephrotoxic drugs. Increase lisinopril. Hypertension: Goal blood pressure less than 140/90 mmHg with mean over 65. Continue with current dose of carvedilol, amlodipine, increasing dose of lisinopril. Monitor blood pressures. Peripheral vascular disease continue atorvastatin Venous stasis dermatitis Active smoker: Nicotine replacement as needed. Dementia: Previously following with neurology. Was not found to be candidate to starting on medications. Severe anterograde dementia, unable to manage his own affairs, longstanding lack of adherence with medical treatments, unsafe to live at home. CODE STATUS: Discussed in detail with the family and patient again. DNR/DNI. Carb consistent diet Protonix for PUD prophylaxis. Both patient and family is aware that unfortunately patient cannot get antiplatelet therapy and aspirin given diagnosis of subdural hematoma which puts him at a higher risk of in-stent thrombosis. They also understand that putting him on the antiplatelet therapy and aspirin can cause him to have worsening in neurological component given subdural hematoma. Plan for the day: Continue current treatment. Monitor for chest pain. Monitor blood pressures. Goal blood pressure less than 140/90 [address] placement with case management. Discharge plan: Plan to discharge to SNF for further rehabitation. Case management aware. Attestations Medical Necessity Statement*: Requires further hospitalization for management of ST elevation [place] post PCI, subdural hematoma while safe discharge planning discharge. 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
[2023-08-13 16:54] LABS: Glucose Point of Care 235 mg/dL (70-110)
[2023-08-13] MEDS: atorvastatin 40 mg Tablet 80 MG PO (21:31)
[2023-08-13 21:44] LABS: Glucose Point of Care 210 mg/dL (70-110)
[2023-08-14 03:43] VITALS: BP 126/53; PULSE 62; RESP 15; TEMP 36.6; O2SAT 96
[2023-08-14 05:15] VITALS: PULSE 67
[2023-08-14 06:31] LABS: Glucose Point of Care 113 mg/dL (70-110)
[2023-08-14 07:10] VITALS: BP 116/55; PULSE 61; RESP 17; TEMP 36.6; O2SAT 93
[2023-08-14 07:39] VITALS: PULSE 51; RESP 18; O2SAT 93
[2023-08-14] MEDS: lisinopril 10 mg Tablet PO (08:32)
[2023-08-14] MEDS: amlodipine 5 mg Tablet PO (08:32)
[2023-08-14] MEDS: carvedilol 3.125 mg Tablet PO (08:32)
[2023-08-14] MEDS: pantoprazole 40 mg SDV IVP (08:33)
--- NOTE | 2023-08-14 09:05 | PC.SOCIAL ---
IMM Update pg 2 of IMM updated and reviewed w/ patient's dauhter. Copy provided and copy dated, initialed and placed in chart.
--- NOTE | 2023-08-14 09:09 | P.DS_ITS ---
Discharge Providers Date of Admission: 08/04/23 18:59 Date of Discharge: August 14, 2023 Attending Provider at Admission: Lokesh Tavarez MD Attending Provider at Discharge: Lokesh Tavarez MD Primary Care Provider: MERY Medina Diagnoses at Discharge Discharge Diagnosis (1) ST elevation (STEMI) myocardial infarction: Status: Acute Qualifiers: Involved coronary artery: unspecified coronary artery Qualified Code(s): I21.3 - ST elevation (STEMI) myocardial infarction of unspecified site (2) Diabetes: Status: Acute Qualifiers: Diabetes mellitus complication status: with hyperglycemia Diabetes mellitus special procedures tech insulin use: without nursing home use Diabetes mellitus type: type 2 Qualified Code(s): E11.65 - Type 2 diabetes mellitus with hyperglycemia (3) Hypertension: Status: Acute Qualifiers: Hypertension type: essential hypertension Qualified Code(s): I10 - Essential (primary) hypertension (4) Peripheral neuropathy: Status: Acute (5) PAD (peripheral artery disease): Status: Acute (6) Nicotine dependence, unspecified, uncomplicated: Status: Acute (7) Depression with anxiety: Status: Acute (8) Memory deficit following unspecified cerebrovascular disease: Status: Acute (9) Hyperglycemia: Status: Acute (10) Metabolic acidosis: Status: Acute (11) Hyperkalemia: Status: Acute (12) JAMES (acute kidney injury): Status: Acute (13) Subdural hematoma: Status: Acute Reason for Visit Reason for Visit: AMS; HYPERGLYCEMIA Brief History: History as per HPI: Xander Chilel is a 68 year old male history of hemorrhagic stroke status post coiling 2017, active smoker, Noncompliant, diabetic, stopped taking insulin years ago, recently oral antihyperglycemic agents added recently by the PCP presented with chief complaint of lethargy fatigue. Patient was not feeling well he called his neighbors who checked on him and called 911. He was diagnosed with STEMI anterior wall, went to the [facility] status post intervention of RCA, left circumflex still needs intervention, patient is confused and lethargic, daughter at the bedside stating that patient is extremely noncompliant, smokes 3 packs of cigarettes every day, patient is able to follow commands, I requested kidney levels, he has metabolic acidosis with high sugar added insulin for hyperkalemia and hyperglycemia. Requested CT head because patient is having myoclonus of left arm as per the daughter from previous stroke he did have left-sided weakness but twitching is new. I have asked nurse to do CT head placed to give him dual antiplatelet therapy, place Bowling catheter Goals of care discussed with the daughter she is opting for DNR/DNI, stating that her father never wanted mechanical ventilation or intubation Hospital Course Hospital Course Patient was admitted to the hospital after undergoing emergency PCI in setting of anterior wall ST elevation ME. Patient was seen by medical team after u ndergoing PCI. On being seen by medical team he was found to have metabolic acidosis with uncontrolled blood sugars, myoclonus of the left arm for which CT head was done which showed subdural hematoma. Goals of care discussions were done with patient and family at bedside and risk of increasing subdural hematoma on DAPT versus risk of in-stent thrombosis without being DAPT were discussed in detail with the patient and it was decided to hold off on that for now. Patient during hospitalization remained chest pain-free. Patient was started on antiseizure medications. He is able to ambulate with a walker. Goals of care discussions were done in detail with the patient. Discharge plan was discussed in detail with patient and family at bedside. They wanted patient to be placed at assisted living for further rehab and close monitoring. He has been discharged hemodynamically stable condition. He is to follow-up with a primary care provider within next 1 week, cardiology within next 1 week. Patient can most likely start his anticoagulation with DAPT in 1 month from subdural hematoma. Physical Exam Narrative: General: No acute distress, AO x3 HEENT: PERRLA, pupils bilaterally equal and reactive Chest: Normal vesicular breath sounds, no added sounds, equal good air entry bilaterally CVS: S1-S2 regular, no murmurs, no tachycardia, no gallops, no rubs Abdomen: Soft, nontender, no organomegaly, bowel sounds present Neuro: No focal deficits, no facial deformity, AO x3, power 5/5 in all limbs Urinary Catheter Management: Bowling: Cath Placed During This Visit: yes, but has since been removed by the nurse Reason for Continuing Indwelling Catheter: Decision to DC Catheter Urinary Catheter Date of Insertion: 08/04/23 Urinary Catheter Time of Insertion: 20:50 Date Urinary Catheter Removed: 08/10/23 Time Urinary Catheter Discontinued: 05:50 Discharge Data Studies Completed and Pending Completed Studies During Hospitalization Category Date Time Status CT head wo con* [id number] Stat Cat Scan 12/03/23 20:16 Completed INSURANCE POLICY ISSUE CLERK request for service Stat Exams 08/04/23 17:27 Completed XR chest 1V portable [id number] Stat Exams 08/04/23 17:10 Completed XR chest 1V portable [id number] Stat Exams 08/04/23 22:00 [place] [id number] Routine Ultrasound 08/10/23 12:23 Completed CV. echo wo/w contrast [id number] Routine Ultrasound 08/05/23 19:28 Completed US renal BI* [id number] Routine Ultrasound 08/05/23 15:29 Completed Pending at discharge Category Date Time Status CA echo doppler complete Routine Exams 08/04/23 18:48 Ordered COVID [SARS Covid-2 Antigen] Routine Lab 08/14/23 08:45 Received Radiology Impressions Head CT 08/04/23 20:16 IMPRESSION: 1. Bilateral cerebral convexity subdural hematomas. The right appears acute the left appears subacute. No significant midline shift. 2. Layering blood in the left occipital horn. There is a hyperdense mass in the region of the left atria of the lateral ventricle which may be a meningioma. Follow-up MRI brain with and without contrast material is recommended for further characterization. ASSESSMENT: ASPECTS ([place] Stroke Program Early CT Score) is 10. ADDENDUM: 08/04/232234 THIS REPORT CONTAINS FINDINGS THAT MAY BE CRITICAL TO PATIENT CARE. The findings were verbally communicated via telephone conference with NIKHIL Canales at 10:34 PM IRONMOLDER on 08/04/2023. The findings were acknowledged and understood. Chest X-Ray 08/04/23 22:00 IMPRESSION: 1. Mild bilateral perihilar infiltrates. Correlate for pulmonary vascular congestion versus pneumonia. 2. Feeding tube tip off image likely in the patient's stomach. This can be confirmed with abdominal x-ray for follow up. Central right PICC catheter placement. Venous Duplex 08/10/23 12:23 IMPRESSION: No evidence of deep vein thrombosis. Laboratory Results WBC 10.38 10^3/uL (3.29-11.43) 08/13/23 03:51 RBC 4.23 10^6/uL (3.85-5.65) 08/13/23 03:51 Hgb 12.60 g/dL (11.27-16.99) 08/13/23 03:51 Hct 39.4 % (37-53) 08/13/23 03:51 MCV 93.1 fl (82-101) 08/13/23 03:51 MCH 29.8 pg (27-33) 08/13/23 03:51 MCHC 32.0 g/dL (30-55) 08/13/23 03:51 RDW 12.6 % (12.1-15.1) 08/13/23 03:51 Plt Count 176 10^3/cmm (157-399) 08/13/23 03:51 MPV 12.9 fL (7.4-10.4) H 08/13/23 03:51 Neut % (Auto) 69.1 % 08/13/23 03:51 Lymph % (Auto) 14.3 % 08/13/23 03:51 [place] % (Auto) 13.3 % 08/13/23 03:51 Eos % (Auto) 1.9 % 08/13/23 03:51 Baso % (Auto) 0.7 % 08/13/23 03:51 Neut # (Auto) 7.18 10^3/uL (1.8-7.7) 08/13/23 03:51 Lymph # (Auto) 1.5 10^3/uL (0.8-4.8) 08/13/23 03:51 [place] # (Auto) 1.4 10^3/uL (0.2-0.9) H 08/13/23 03:51 Eos # (Auto) 0.2 10^3/uL (0.0-0.8) 08/13/23 03:51 Baso # (Auto) 0.1 10^3/uL (0.0-0.1) 08/13/23 03:51 Nucleated RBC % (auto) 0 % 08/13/23 03:51 Nucleated RBCs # 0.0 /100WBC 08/13/23 03:51 APTT 27.1 SECONDS (23.9-36.7) 08/05/23 00:24 Sodium 138 mmol/L (136-145) 08/13/23 03:51 Potassium 3.9 mmol/L (3.5-5.1) 08/13/23 03:51 Chloride 103 mmol/L (98-107) 08/13/23 03:51 Carbon Dioxide 24 mmol/L (22-29) 08/13/23 03:51 Anion Gap 14.9 (5-19) 08/13/23 03:51 BUN 20 mg/dL (8-23) 08/13/23 03:51 Creatinine 1.1 mg/dL (0.7-1.2) 08/13/23 03:51 GFR Calculation 66.2 mL/min (90-130) L 08/13/23 03:51 Glucose 109 mg/dL (65-115) 08/13/23 03:51 POC Glucose 113 mg/dL (70-110) H 08/14/23 06:27 Estimat Average Glucose 410 08/04/23 17:21 Hemoglobin A1c 15.9 % (4.0-6.0) H 08/04/23 17:21 Calculated Osmolality 289 mOsm/kg (285-295) 08/13/23 03:51 Calcium 8.9 mg/dL (8.5-10.5) 08/13/23 03:51 Phosphorus 3.1 mg/dL (2.5-4.5) 08/07/23 03:36 Magnesium 1.9 mg/dL (1.7-2.3) 08/11/23 04:04 Total Bilirubin 0.4 mg/dL (0.15-1.2) 08/13/23 03:51 AST 16 U/L (0-40) 08/13/23 03:51 ALT 15 U/L (0-41) 08/13/23 03:51 Alkaline Phosphatase 80 U/L (40-130) 08/13/23 03:51 Troponin T Baseline 42 ng/L (0-15) H 08/04/23 17:21 Troponin T 120 Minute 41.82 ng/L (0-15) H 08/04/23 20:07 Delta Troponin T -0.18 ABS# (0-10) L 08/04/23 20:07 Troponin T Hi Sens 6Hr 39.00 ng/L (0-15) H 08/04/23 22:41 Troponin T Hi Sens 6Hr Delta -3.00 ng/L (0-12) L 08/04/23 22:41 C-Reactive Protein 15.7 mg/L (0.0-4.9) H 08/05/23 04:20 NT-Pro-B Natriuret Pep 14154 pg/mL (0-125) H 08/04/23 17:21 Total Protein 6.7 g/dL (6.6-8.7) 08/13/23 03:51 Albumin 3.0 g/dL (3.5-5.2) L 08/13/23 03:51 Globulin 3.7 g/dL (1.3-4.6) 08/13/23 03:51 Vitamin B12 750 pg/mL (232-1245) 08/04/23 20:07 TSH 1.00 uIU/mL (0.27-4.20) 08/04/23 20:07 Serum Ketones Negative (Negative) 08/04/23 20:07 Vitals Last Vital Signs Temp 97.8 F 08/14/23 07:10 Pulse 51 L 08/14/23 07:39 Resp 18 08/14/23 07:39 BP 116/55 08/14/23 07:10 Pulse Ox 93 08/14/23 07:39 O2 Del Method Room Air 08/14/23 07:39 O2 Flow Rate 2 08/05/23 19:55 Discharge Plan Discharge Patient Disposition: Xfer SNF Condition: Stable Prescriptions: New atorvastatin 40 mg Tablet 80 mg PO BEDTIME Qty: 60 0RF amlodipine 5 mg Tablet 5 mg PO DAILY Qty: 30 0RF carvedilol 3.125 mg Tablet 3.125 mg PO BID Qty: 60 0RF lisinopril 10 mg Tablet 10 mg PO DAILY Qty: 60 0RF Lantus Solostar U-100 Insulin 100 unit/mL (3 mL) insulin pen 20 unit SUBCUT BID Qty: 15 0RF Humalog KwikPen Insulin 100 unit/mL insulin pen 6 unit SUBCUT TID Qty: 15 0RF Keppra 500 mg tablet 500 mg PO BID Qty: 60 0RF Continued (DME) diabetic shoes with 3 inserts See Rx Instructions .Route .MEDSUPPLY Qty: 1 0RF Rx Instructions: As directed Farxiga 10 mg tablet 10 mg PO DAILY Discontinued atorvastatin 10 mg tablet 10 mg PO DAILY Discharge Orders: Discharge Order (Routine); Ordered 08/14/23 Ordered By: Mohan Beard Referrals: [facility] [Other] Jeff,Lina, CALCULUS TEACHER [Primary Care Provider] - 7-10 days Libertad Mahoney FNP [Nurse Practitioner] - 08/19/23 10:00 am Lucy Short MD [Physician] - (Your Dr. Short follow up appointment will be scheduled during your Libertad Mahoney appointment. Thank you.) Discharge Diet: Cardiac and Diabetic Discharge Activity: Resume usual activity, Increase activity as tolerated and Use walker/crutches as instructed Patient Instructions: Heart Attack (DC), Acute Kidney Injury (DC), Diabetic Ketoacidosis (DC), Hyperkalemia (DC), Opioid Safety, Post Angiogram Home Care Instructions, Post Heart Attack Stoplight Activity Restrictions/Additional Instructions: Going forward please use 20 units of Lantus twice daily along with insulin sliding scale premeals. Continue atorvastatin at a higher dose. Dual antiplatelet therapy can be started on 1 month from now. He should follow- up with cardiology and primary care provider within next 1 week. He should also follow-up with neurosurgery as an outpatient at the earliest. Discharge Attestations Time Spent in Discharge Care*: greater than 30 min Specific Discharge Activities: educating patient, educating and/or supporting family/caregiver, discussing with pcp/other providers, discussing with egg caser/social workers/dc planners, documenting/other paperwork and evaluating patient/reviewing data Quality Metrics Clinical Quality Measures [ Acute Myocardial Infaction { Clinical Trial Participant: No; Contraindication to aspirin: Medical contraindication; Contraindication to statin: None; Statin prescribed; Contraindication to PCI: None; PCI performed;}] Coding Level of Care Code 50291 Total time (in minutes) for Discharge: [address] elevation (STEMI) myocardial infarction I21.3 Involved coronary artery: unspecified coronary artery Type 2 diabetes mellitus with hyperglycemia, without long-term current use of insulin E11.65 Diabetes mellitus complication status: with hyperglycemia Diabetes mellitus special procedures tech insulin use: without nursing home use Diabetes mellitus type: type 2 Essential hypertension I10 Hypertension type: essential hypertension Peripheral neuropathy G62.9 PAD (peripheral artery disease) I73.9 Nicotine dependence, unspecified, uncomplicated F17.200 Depression with anxiety F41.8 Memory deficit following unspecified cerebrovascular disease I69.911 Hyperglycemia R73.9 Metabolic acidosis E87.20 Hyperkalemia E87.5 JAMES (acute kidney injury) N17.9 Subdural hematoma S06.5XAA
--- NOTE | 2023-08-14 09:21 | PM.PN ---
Subjective Subjective: Patient doing well. no chest pain Vitals/I&O/Wt Last Vital Signs Temp 97.8 F 08/14/23 07:10 Pulse 51 L 08/14/23 07:39 Resp 18 08/14/23 07:39 BP 116/55 08/14/23 07:10 Pulse Ox 93 08/14/23 07:39 O2 Del Method Room Air 08/14/23 07:39 O2 Flow Rate 2 08/05/23 19:55 08/13/23 08/14/23 08/14/23 22:59 06:59 14:59 Intake Total 220 / 800 200 / 1000 240 / 240 Output Total 0 / 225 Balance 220 / 575 200 / 775 240 / 240 Weight last 48 hrs Weight 196 lb Physical Exam Narrative: GENERAL: Patient is alert and oriented NECK: No jugular vein distension. [] HEENT: No cyanosis. No icterus. No pallor. [] HEART: Regular S1 and S2. LUNGS: Clear to auscultate bilaterally. [] EXTREMITIES: Lower extremities with 1+ edema bilaterally. Urinary Catheter Management: Bowling: Cath Placed During This Visit: yes, but has since been removed by the nurse Reason for Continuing Indwelling Catheter: Decision to DC Catheter Urinary Catheter Date of Insertion: 08/04/23 Urinary Catheter Time of Insertion: 20:50 Date Urinary Catheter Removed: 08/10/23 Time Urinary Catheter Discontinued: 05:50 Data 08/13/23 03:51 08/13/23 03:51 A&P Assessment and plan (1) ST elevation (STEMI) myocardial infarction: Patient had PCI of RCA. Continue holding dual antiplatelet therapy. It will be appropriate to see neurology/neurosurgery in future and assess if at some point antiplatelet therapy can be resumed. Qualifiers: Involved coronary artery: unspecified coronary artery Qualified Code(s): I21.3 - ST elevation (STEMI) myocardial infarction of unspecified site (2) Nicotine dependence, unspecified, uncomplicated: Patient chronic smoker (3) Diabetes: Per medicine team Qualifiers: Diabetes mellitus type: type 2 Diabetes mellitus pulling unit operator insulin use: without [place] [facility] use Diabetes mellitus complication status: with hyperglycemia Qualified Code(s): E11.65 - Type 2 diabetes mellitus with hyperglycemia (4) Hypertension: Per medicine team Qualifiers: Hypertension type: essential hypertension Qualified Code(s): I10 - Essential (primary) hypertension Attestations Medical Necessity Statement*: Care expected to cross 2 midnights. Coding Level of Care Code Acute Code for [facility] Fwd Diagnoses ST elevation (STEMI) myocardial infarction I21.3 Involved coronary artery: unspecified coronary artery Nicotine dependence, unspecified, uncomplicated F17.200 Type 2 diabetes mellitus with hyperglycemia, without long-term current use of insulin E11.65 Diabetes mellitus type: type 2 Diabetes mellitus pulling unit operator insulin use: without [place] use Diabetes mellitus complication status: with hyperglycemia Essential hypertension I10 Hypertension type: essential hypertension
[2023-08-14 10:10] LABS: SARS Covid-2 Antigen Negative (Negative)
[2023-08-14] MEDS: levETIRAcetam 500 MG/100 ML PREMIX 400 MG IV (10:24)
[2023-08-14 11:12] VITALS: BP 123/57; PULSE 61; RESP 17; TEMP 36.5; O2SAT 98
[2023-08-14 11:32] VITALS: BP 123/57; PULSE 61; RESP 17; TEMP 36.5; O2SAT 98
[2023-08-14 12:04] LABS: Glucose Point of Care 332 mg/dL (70-110)
--- NOTE | 2023-08-14 12:10 | PC.NURSE ---
right arm picc line dc'd w/o difficulty.catheter intact.pressure hed x 3 min and drsg applied.pt tolerated procedure well
--- NOTE | 2023-08-14 12:11 | PC.NURSE ---
report phoned to [place].pt discharged via w/c to exit at this time.sister to transport pt to rehab facility
== END 2023-08-14 12:12 | disposition skilled nursing facility (03) | DRG 981 ==
LOC: ER 17:11 → CCL 17:28 → ICU 19:00 → CSU 08-06 12:28
PROVIDERS: Internal Medicine; Student in an Organized Health Care Education/Training Program; Admitting Provider Specialist; Emergency Provider Emergency Medicine; PCP Nurse Practitioner Family; Visit Provider Specialist
PROC: 027034Z Dilation of Coronary Artery, One Artery with Drug-eluting Intraluminal Device, Percutaneous Approach (ICD-10-PCS; principal; 2023-08-04 17:30)
PROC: 027034Z Dilation of Coronary Artery, One Artery with Drug-eluting Intraluminal Device, Percutaneous Approach (ICD-10-PCS; 2023-08-04 17:30)
DX: I62.01 Nontraumatic acute subdural hemorrhage (principal); E11.10 Type 2 diabetes mellitus with ketoacidosis without coma; I21.11 ST elevation (STEMI) myocardial infarction involving right coronary artery; I69.254 Hemiplegia and hemiparesis following other nontraumatic intracranial hemorrhage affecting left non-dominant side; N17.9 Acute kidney failure, unspecified; I62.02 Nontraumatic subacute subdural hemorrhage; E11.51 Type 2 diabetes mellitus with diabetic peripheral angiopathy without gangrene; E11.42 Type 2 diabetes mellitus with diabetic polyneuropathy; I10 Essential (primary) hypertension; F17.210 Nicotine dependence, cigarettes, uncomplicated; F41.8 Other specified anxiety disorders; E87.5 Hyperkalemia; F03.C0 Unspecified dementia, severe, without behavioral disturbance, psychotic disturbance, mood disturbance, and anxiety; I25.10 Atherosclerotic heart disease of native coronary artery without angina pectoris; E78.5 Hyperlipidemia, unspecified; J44.9 Chronic obstructive pulmonary disease, unspecified; Z66 Do not resuscitate; Z85.828 Personal history of other malignant neoplasm of skin; Z11.52 Encounter for screening for COVID-19; Z91.148 Patient's other noncompliance with medication regimen for other reason
CPT/HCPCS: 36415; 36416; 36573; 36592; 51702; 70450; 71045; 76770; 80048; 80053; 82009; 82607; 82947; 82962; 83036; 83735; 83880; 84100; 84443; 84484; 85025; 85347; 85730; 86140; 87426; 93005; 93458; 93971; 96365; 96367; 96372; 96376; 97110; 97116; 97161; 97165; 97530; 99152; 99153; 99285; 99291; A4222; C1751; C1769; C1874; C1887; C1894; C8929; C9113; C9600; J0131; J0283; J1100; J1644; J1815; J1953; J2250; J2270; J3010; J3475; J3480; J3490; J7030; J7050; Q9956; Q9967

== ENCOUNTER → 2023-08-19 10:09 | Outpatient (BNVA) | payer MEDICARE, SELFPAY | PROVIDERS: PCP Nurse Practitioner Family; Visit Provider Nurse Practitioner Family | DX: I21.3 ST elevation (STEMI) myocardial infarction of unspecified site (principal); F17.210 Nicotine dependence, cigarettes, uncomplicated; I10 Essential (primary) hypertension | CPT/HCPCS: 99213 ==

== ENCOUNTER → 2023-10-07 11:11 | Outpatient (BNVA) | payer MEDICARE, SELFPAY | PROVIDERS: PCP Nurse Practitioner Family; Visit Provider Internal Medicine Cardiovascular Disease | DX: I10 Essential (primary) hypertension (principal); F41.8 Other specified anxiety disorders; E11.65 Type 2 diabetes mellitus with hyperglycemia; N17.9 Acute kidney failure, unspecified; I69.911 Memory deficit following unspecified cerebrovascular disease; I25.5 Ischemic cardiomyopathy; Z91.199 Patient's noncompliance with other medical treatment and regimen due to unspecified reason; I25.2 Old myocardial infarction; F17.210 Nicotine dependence, cigarettes, uncomplicated; Z79.4 Long term (current) use of insulin | CPT/HCPCS: 99215 ==

== ENCOUNTER → 2023-10-21 09:01 | Outpatient (BNVA) | payer MEDICARE, SELFPAY | PROVIDERS: PCP Nurse Practitioner Family; Referring Provider Nurse Practitioner Family; Visit Provider Psychiatry & Neurology Neurology | DX: I69.911 Memory deficit following unspecified cerebrovascular disease (principal); Z91.199 Patient's noncompliance with other medical treatment and regimen due to unspecified reason | CPT/HCPCS: 99202 ==

== ENCOUNTER 2024-01-16 07:35 | Outpatient (CLI) | payer MEDICARE, SELFPAY ==
--- NOTE | 2024-01-16 07:42 | USCV_ITS ---
Xander Chilel Age: 68 Gender: M : 1955 Exam Date: 01/16/2024 07:46 Ordering Phys: Lacho Ceja MD ([email or web address]) Technologist: Exam Location: [facility] Indication: Low EF BP: 129 / 73 HR: 56 Rhythm: Sinus Technical Quality: Adequate MEASUREMENTS (Male / Female) Normal Values 2D ECHO LV Diastolic Diameter PLAX 6.4 cm 4.2 - 5.9 / 3.9 - 5.3 cm IVS Diastolic Thickness 1.3 cm 0.6 - 1.0 / 0.6 - 0.9 cm IVS Systolic Thickness 1.3 cm LVPW Diastolic Thickness 1.4 cm 0.6 - 1.0 / 0.6 - 0.9 cm LVPW Systolic Thickness 1.3 cm LVOT Diameter 2.1 cm LV Ejection Fraction 2D Teich 46.8 % LV Ejection Fraction MOD 2C 31.5 % LV Ejection Fraction 2C AL 33.3 % LA Diameter 4.5 cm RA Systolic Volume 4C AL 36.1 ml RA Systolic Volume 4C MOD 35.8 ml Aorta at Sinotubular Diameter 2.7 cm IVC Diameter 2.1 cm M-MODE LA Ao Ratio MM 1.4 AV Cusp Separation MM 2.0 cm DOPPLER AV Peak Velocity 119.0 cm/s MV Area PHT 3.0 cm squared Mitral E to A Ratio 0.8 TR Peak Velocity 153.5 cm/s TR Peak Gradient 9.4 mmHg TR Mean Velocity 111.0 cm/s TR Mean Gradient 5.9 mmHg TR Velocity Time Integral 44.1 cm TV Peak E Velocity 79.0 cm/s Right Atrial Pressure 3.0 mmHg Pulmonary Artery Systolic Pressu 12.4 mmHg PV Peak Velocity 98.0 cm/s FINDINGS Left Ventricle Diffuse hypokinesia of the left ventricular with ejection fraction of 33%, by MOD. (Echo contrast - Optison was used to delineate the endocardium and to estimate the LV ejection fraction) . Even the echo contrast study was of suboptimal quality Right Ventricle The right ventricle is normal in size and function. Right Atrium The right atrium is normal in size. Left Atrium Mildly increased left atrial size. Mitral Valve Mild-moderate mitral valve regurgitation. Thickened mitral valve. Aortic Valve Thickened aortic valve. Mild aortic valve regurgitation. Tricuspid Valve Trace tricuspid valve regurgitation. Pulmonic Valve No gross abnormalities noted Pericardium Normal pericardium without effusion. Aorta Normal ascending aorta dimension. IVC The inferior vena cava appears normal. CONCLUSIONS Diffuse hypokinesia of the left ventricular with ejection fraction of 33%, by MOD. (Echo contrast - Optison was used to delineate the endocardium and to estimate the LV ejection fraction) . Even the echo contrast study was of suboptimal quality. Mildly increased left atrial size. Mild-moderate mitral valve regurgitation. Thickened mitral valve. Thickened aortic valve. Mild aortic valve regurgitation. Trace tricuspid valve regurgitation. There is no pericardial effusion. Technically difficult study Consider MUGA scan to better better evaluate the EF Dr Vianca Nur MD FACC (Electronically Signed) Final Date: 18 Jan 2024 12:41 S
[2024-01-16] MEDS: perflutren protein-a microsphr 0.22 mg/mL SDV 3 mL IV (08:26)
== END 2024-01-16 07:36 | disposition home or self-care (01) ==
LOC: RAD 07:35
PROVIDERS: PCP Nurse Practitioner Family; Visit Provider Internal Medicine Cardiovascular Disease
DX: I21.3 ST elevation (STEMI) myocardial infarction of unspecified site (principal); I34.0 Nonrheumatic mitral (valve) insufficiency; I05.9 Rheumatic mitral valve disease, unspecified; I35.2 Nonrheumatic aortic (valve) stenosis with insufficiency
CPT/HCPCS: C8929; Q9956

== ENCOUNTER 2024-02-26 08:08 | Outpatient (CLI) | payer MEDICARE, SELFPAY ==
--- NOTE | 2024-02-26 08:20 | NMCV_ITS ---
NM card bld pool r or s*[id number] Xander Chilel Age: 68 Gender: M : 1955 Exam Date: 02/26/2024 08:20 Ordering Phys: Orlin Smith M.D ([email or web address]) Technologist: NOLAN Dempsey Exam Location: [facility] Indications: Ischemic cardiomyopathy Camera Used: Tremor Video Imaging Protocol: in vivo RBC tagging Technical Image Quality: Good Dose: Admin Site: Administered By: [id number] Tagged RBCs: 24.8 IV - Right NOLAN Dempsey Antecubital PYP: EJECTION FRACTION: Automatic LV EF: 35 Rest RV EF: Manual LV EF: FINDINGS LV ejection fraction estimated to be 35%. Segmental wall motion analysis revealing diffuse hypokinesia of the left ventricle with almost akinetic septum CONCLUSIONS 1. Estimated LV ejection fraction of 35% 2. Segmental wall motion analysis revealing diffuse hypokinesia of the left ventricle with almost akinetic septum Dr Vianca Nur MD FAC (Electronically Signed) Final Date: 26 February 2024 17:07 S
== END 2024-02-26 08:09 | disposition home or self-care (01) ==
PROVIDERS: PCP Internal Medicine; Visit Provider Internal Medicine
DX: R93.1 Abnormal findings on diagnostic imaging of heart and coronary circulation (principal); I51.89 Other ill-defined heart diseases
CPT/HCPCS: 78472; A9560

== ENCOUNTER → 2024-03-03 10:30 | Outpatient (BNVA) | payer MEDICARE, MEDICAID, SELFPAY | PROVIDERS: PCP Internal Medicine; Visit Provider Internal Medicine Cardiovascular Disease | DX: I25.10 Atherosclerotic heart disease of native coronary artery without angina pectoris (principal); F17.200 Nicotine dependence, unspecified, uncomplicated; I10 Essential (primary) hypertension; I25.5 Ischemic cardiomyopathy; Z91.199 Patient's noncompliance with other medical treatment and regimen due to unspecified reason; E11.65 Type 2 diabetes mellitus with hyperglycemia; I97.820 Postprocedural cerebrovascular infarction following cardiac surgery; I69.911 Memory deficit following unspecified cerebrovascular disease; E78.5 Hyperlipidemia, unspecified; I25.2 Old myocardial infarction; E11.51 Type 2 diabetes mellitus with diabetic peripheral angiopathy without gangrene; Z79.4 Long term (current) use of insulin | CPT/HCPCS: 99214 ==